=== PATIENT | male | born 1950 | race Caucasian/White ===

== ENCOUNTER → 2017-01-13 | Outpatient (CLI) | payer MEDICARE, OTHER ==
--- NOTE | 2017-01-17 09:08 | SLEEPCENT ---
DATE OF PROCEDURE: 01/13/2017 ORDERING PROVIDER: Prerna Armas NP INTERPRETATION: Nocturnal polysomnography was performed for retitration of pressure therapy in this patient with obstructive sleep apnea syndrome. For testing, a [employer] Simplus full face mask of medium size was used, 10 cm of water pressure was initially applied to the circuit and the lights were extinguished. 7 hours and 54 minutes of data were reviewed. There were 383 minutes of sleep identified. Sleep latency was short at 2.5 minutes. Rapid eye movement (REM) latency was prolonged at 183 minutes. Sleep architecture improved significantly late in the study. There were two REM periods noted. Overall sleep efficiency was 81.8%. The patient's electrocardiogram (EKG) showed a sinus rhythm with intraventricular conduction delay and frequent ventricular ectopy. Average heart rate was 60 beats per minute. Electroencephalogram (EEG) showed reasonably normal waveforms for awake and sleep. Respiratory events were fully palliated with a continuous positive airway pressure (CPAP) pressure of +12. Limb activity persisted. There were several trains of 30 events identified. Limb movement arousal index was borderline at 5.8. IMPRESSION: 1. Obstructive sleep apnea syndrome (G47.33). 2. Mild periodic limb movement disorder (G47.61). Limb movement arousal index of 5.8. RECOMMENDATIONS: CPAP at a pressure of 12 cm is sufficient to address the patient's respiratory events. Should sleep symptoms persist, interventions to reduce the frequency of arousal from limb activity may also be helpful.
== END ==
LOC: M SLEEP 19:06
PROVIDERS: ATTEND Nurse Practitioner Adult Health
DX: G47.33 Obstructive sleep apnea (adult) (pediatric) (principal)

== ENCOUNTER 2020-10-12 16:26 | Inpatient (IN) | payer MEDICARE, OTHER ==
[~2020-10-12] VITALS: Ht 180.3 cm; Wt 128.1 kg
[2020-10-12] MEDS ORDERED: METO200T28 PO ×2 (16:35→16:55)
[2020-10-12] MEDS ORDERED: PRAD150C6 PO (16:35)
[2020-10-12] MEDS ORDERED: FURO20TA2 PO ×2 (16:35→18:48)
[2020-10-12] MEDS ORDERED: PRAV20TA2 PO (16:55)
[2020-10-12] MEDS ORDERED: DICL1GEL3 TOP (16:55)
[2020-10-12] MEDS ORDERED: D 1010004 PO (16:55)
[2020-10-12] MEDS ORDERED: SILD100T PO (16:55)
--- NOTE | 2020-10-12 17:13 | REP ---
INDICATION: DYSPNEA/COUGH. COMPARISON: Comparison chest x-ray October 11, 2018. TECHNIQUE: Portable upright AP chest radiograph. FINDINGS: A bipolar pacemaker is seen in the right heart view of the left side. Moderate cardiomegaly is observed unchanged. Pulmonary vasculature is somewhat congested. The pleural angles are sharp. There is an area of increased density in the right base which may be an early infiltrate. Lung donnelly are otherwise free of infiltrate. Monitoring electrodes and oxygen delivery tubing are seen.. IMPRESSION: Possible infiltrate right base. Cardiomegaly and vascular congestion. Pacemaker.a. <Electronically signed by Bret Forrest > 10/12/20 [id number]
[2020-10-12 17:18] LABS: BASO # 0.1 10^3/uL (0.0-0.2); BASO % 0.6 % (0.0-1.0); EOS # 0.2 10^3/uL (0.0-0.5); EOS % 1.6 % (0.0-3.0); HEMATOCRIT 35.6 % (42.0-52.0); HEMOGLOBIN 10.1 g/dl (13.5-17.5); LYMPH # 1.7 10^3/uL (1.5-5.0); LYMPH % 17.6 % (24.0-44.0); MEAN CORPUSCULAR HEMOGLOBIN 22.1 pg (27.0-33.0); MEAN CORPUSCULAR HGB CONC 28.4 g/dl (32.0-36.5); MEAN CORPUSCULAR VOLUME 78.1 fl (80.0-96.0); MONO % 10.1 % (2.0-8.0); NEUTROPHILS # 6.9 10^3/uL (1.5-8.5); NEUTROPHILS % 69.8 % (36.0-66.0); PLATELET COUNT, AUTOMATED 310 10^3/uL (150-450); RED BLOOD COUNT 4.56 10^6/uL (4.30-6.10); WHITE BLOOD COUNT 9.9 10^3/uL (4.0-10.0)
[2020-10-12 17:49] LABS: ALBUMIN 3.3 GM/DL (3.2-5.2); ALT/SGPT 22 U/L (12-78); BILIRUBIN,DIRECT 0.2 MG/DL (0.0-0.2); BILIRUBIN,TOTAL 0.5 MG/DL (0.2-1.0); BLOOD UREA NITROGEN 23 MG/DL (7-18); CALCIUM LEVEL 7.9 MG/DL (8.8-10.2); CARBON DIOXIDE LEVEL 33 MEQ/L (21-32); CHLORIDE LEVEL 107 MEQ/L (98-107); CPK CREATINE PHOSPHOKINASE 53 U/L (39-308); CREATININE FOR GFR 0.94 MG/DL (0.70-1.30); GLOMERULAR FILTRATION RATE > 60.0 (>49); GLUCOSE, FASTING 100 MG/DL (70-100); MB/CK RELATIVE INDEX 1.89 (< OR =4); NT-PRO BNP 3037 PG/ML (<125); POTASSIUM SERUM 4.4 MEQ/L (3.5-5.1); SODIUM LEVEL 142 MEQ/L (136-145); TROPONIN I < 0.02 NG/ML (< 0.10)
[2020-10-12] MEDS ORDERED: AZITHROMYCIN INJ 500 MG, VIAL MATE ADAPTER 1 EACH in NS 250 ML IV ONE (18:05)
[2020-10-12] MEDS ORDERED: FUROSEMIDE 40MG/4ML VIAL (J1940) IV ONE (18:05)
[2020-10-12] MEDS ORDERED: cefTRIAXone SOD 1 GM in D5W MINI-BAG PLUS 50 ML IV ONE (18:05)
[2020-10-12] MEDS ORDERED: med rec comment (18:50)
[2020-10-12] MEDS ORDERED: ISOVUE-370 76% 100ML VIAL As Ordered ONE (20:01)
--- NOTE | 2020-10-12 20:40 | REPVR ---
PROCEDURE INFORMATION: Exam: US Duplex Lower Extremity Veins, Bilateral Exam date and time: 10/12/2020 7:51 PM Age: 70 years old Clinical indication: Edema, localized; Lower extremity, bilateral; Additional info: Edema R/O dvt TECHNIQUE: Imaging protocol: Real-time duplex ultrasound of the extremities with 2-D molina scale, color Doppler flow and spectral waveform analysis with image documentation. Complete exam focused on the bilateral lower extremity veins. COMPARISON: No relevant prior studies available. FINDINGS: Right deep veins: Unremarkable. The common femoral, femoral, proximal profunda femoral and popliteal veins are patent without thrombus. Normal Doppler waveforms. Normal compressibility and/or augmentation response. Right superficial veins: Saphenofemoral junction is patent without thrombus. Left deep veins: Unremarkable. The common femoral, femoral, proximal profunda femoral and popliteal veins are patent without thrombus. Normal Doppler waveforms. Normal compressibility and/or augmentation response. Left superficial veins: Saphenofemoral junction is patent without thrombus. Soft tissues: Unremarkable. IMPRESSION: No evidence of deep vein thrombosis. Electronically signed by: Jorge A Murillo On 10/12/2020 20:40:07 PM
--- NOTE | 2020-10-12 20:42 | ECGEPIP ---
[facility] - ED Test Date: 2020-10-12 Pat Name: NOELLE MOULTON Department: Room: - Gender: Male Director Retirement: MARCEL : 1950 Requested By: Tomas Yeager Order Number: [id number] Reading MD: Saima Baldwin Measurements Intervals [place] Rate: 65 P: AR: QRS: 258 QRSD: 150 T: 62 QT: 460 QTc: 478 Interpretive Statements Ventricular-paced rhythm Biventricular pacemaker detected No prior Electronically Signed on 10-12-2020 20:42:14 EDT by Saima Baldwin
--- NOTE | 2020-10-12 20:49 | REPVR ---
PROCEDURE INFORMATION: Exam: CTA Chest With Contrast Exam date and time: 10/12/2020 8:23 PM Age: 70 years old Clinical indication: Abnormal findings; Abnormal diagnostic tests; Elevated d-dimer; Additional info: SOB elevated d-dimer TECHNIQUE: Imaging protocol: Computed tomographic angiography of the chest with contrast. 3D rendering (Not supervised by radiologist): MIP and/or 3D reconstructed images were created by the technologist. Radiation optimization: All CT scans at this facility use at least one of these dose optimization techniques: automated exposure control; mA and/or kV adjustment per patient size (includes targeted exams where dose is matched to clinical indication); or iterative reconstruction. Contrast material: ISOVUE 370; Contrast volume: 75 ml; Contrast route: INTRAVENOUS (IV); COMPARISON: ME PORTABLE CHEST X-RAY 10/12/2020 4:53 PM FINDINGS: Tubes, catheters and devices: A transvenous pacemaker is present. Pulmonary arteries: There is opacification of the pulmonary arteries with no evidence of pulmonary embolus. Aorta: There is opacification of the aorta which appears intact. Lungs: Mild congestive changes. Pleural spaces: There is a moderate right pleural effusion. Heart: There is moderate cardiomegaly with no evidence of pericardial effusion. Lymph nodes: Small lymph nodes are noted in the mediastinum. Stomach and bowel: There are postoperative changes of the stomach. Intraperitoneal space: There is a small amount of ascites along the lateral aspect of the right lobe of the liver. Bones/joints: Anterior osteophyte formation thoracic spine. Soft tissues: Unremarkable. IMPRESSION: 1. Moderate right pleural effusion. 2. No evidence of pulmonary embolus. 3. Moderate cardiomegaly with mild congestive changes. Electronically signed by: Jorge A Murillo On 10/12/2020 20:49:19 PM
--- NOTE | 2020-10-12 22:04 | HPEPDOC ---
[facility] Medical History & Physical Date of Admission October 13, 2020 Date of Service: October 13, 2020 Primary Care Physician: Vladimir Negrete Attending Physician: BHARATHI FERRER MD History and Physical TIME OF SERVICE: 1015 pm CHIEF COMPLAINT: dyspnea HISTORY OF PRESENT ILLNESS: This 70 yr old M has been short of breath, having a runny nose , congestion, & BLE edema for about 1.5 weeks; he denied having CP and came to the hospital bc his insisted that he comes. She noticed that he has been lethargic and slurring his speech since he stopped using his CPAP machine which is packed in a box bc they are moving. They admit to eating out more at restaurants recently. 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 HOME MEDICATIONS: Please see below. PHYSICAL EXAMINATION: Vital Signs Date Time Temp Pulse Resp B/P (MAP) Pulse Ox O2 Delivery O2 Flow Rate FiO2 10/12/20 16:27 98.7 69 20 178/87 (117) 93 Room Air 10/12/20 16:44 4.0 10/12/20 22:38 55 GENERAL APPEARANCE: well nourished and developed / NAD/ keeps falling asleep during assessment HEENT: neck short/ EOMI /MMM &P CARDIOVASCULAR: RRR/NMRG LUNGS: breath sounds deminshed ABDOMEN: contour obese /soft & NT w palpation MUSCULOSKELETAL: NCAT / FIDEL x 4 INTEGUMENT: not flushed or diaphoretic or pale NEUROLOGICAL: speech slow but not dysarthric PSYCHIATRIC: intermittently arousable for a few min at at time and is able to answer questions appropriately when he is alert LABORATORY DATA: Immature Granulocyte % (Auto) 0.3, Neutrophils (%) (Auto) 69.8H, Lymphocytes (%) (Auto) 17.6L, Monocytes (%) (Auto) 10.1H, Eosinophils (%) (Auto) 1.6, Basophils (%) (Auto) 0.6, Neutrophils # (Auto) 6.9, Lymphocytes # (Auto) 1.7, Monocytes # (Auto) 1.0H, Eosinophils # (Auto) 0.2, Basophils # (Auto) 0.1, Nucleated Red Blood Cells % (auto) 0.0, Anion Gap 2L, Glomerular Filtration Rate > 60.0, Calcium Level 7.9L, Total Bilirubin 0.5, Direct Bilirubin 0.2, Aspartate Amino Transf (AST/SGOT) 23, Alanine Aminotransferase (ALT/SGPT) 22, Alkaline Phosphatase 73, Total Creatine Kinase 53, Creatine Kinase MB 1.0, Creatine Kinase MB Relative Index 1.89, Troponin I < 0.02, IZ-Cft-S-Type Natriuretic Peptide 3037H, Total Protein 7.0, Albumin 3.3, Albumin/Globulin Ratio 0.9 10/12/20 18:32: D-Dimer, Quantitative 1113.42H IMAGING: XRC IMPRESSION: Possible infiltrate right base. Cardiomegaly and vascular congestion. Pacemaker. CTA chest IMPRESSION: 1. Moderate right pleural effusion.2. No evidence of pulmonary embolus. 3. Moderate cardiomegaly with mild congestive changes. US IMPRESSION: No evidence of deep vein thrombosis. EKG: V paced rhythm MICROBIOLOGY: respiratory panel neg ASSESSMENT: is a 70 yr old w Afib, MVP repair, ALMA ROSA, unspecified CHF?, Pacer w defib, hx of SCA, gastric bypass & obesity who is admitted for acute on chronic hypercapneic respiratory failure and Acute CHF 2/2 not using his CPAP for a few days and eating food that his had not prepared. PLAN: 1 Acute on Chronic Hypercapneic Respiratory Failure / ALMA ROSA Plan: admit to ICU / BIPAP / f/u ABG / diuresis 2 Acute Unspecified CHF Plan: elevate head of bed to 50 degrees/ strict Is/OS, daily weights, fluid restriction to 2L or 67oz, salt restriction to 2G / f/u serial Troponins & Echo / c/w Metoprolol 3 Microcytic Anemia Plan: f/u Iron studies and stool occult 4 Atrial Fib Plan: Metoprolol & Dabigatran 5 Class 2 Obesity / s/p Gastric Bypass Complicates care DVT px n/a on DOAC Dispo: home after at least 2 midnights stay Home Medications Scheduled Cholecalciferol (Vitamin D3) (Vitamin D3) 25 Mcg Capsule, 25 MCG PO DAILY Dabigatran Etexilate Mesylate (Pradaxa) 150 Mg Capsule, 150 MG PO BID Furosemide (Furosemide) 20 Mg Tablet, 60 MG PO QAM takes for 3 days,then takes 20mg day for 1 day Furosemide (Furosemide) 20 Mg Tablet, 20 MG PO DAILY Metoprolol Succinate (Metoprolol Succinate) 200 Mg Tab.er.24h, 200 MG PO DAILY Miscellaneous Medications [med rec comment] states pt takes lasix 60mg qam and 20mg at 1600 for 3 days then drops down to 20mgs daily for 1 day. Allergies Coded Allergies: No Known Allergies (Unverified , 06/13/14) A-FIB/CHADSVASC A-FIB History Current/History of A-Fib/PAF?: No Current PO Anticoag Therapy: No BHARATHI FERRER MD October 12, 2020 22:04
[2020-10-12] MEDS ORDERED: MOM 30ML SUSPENSION UDC PO PRN (22:25)
[2020-10-12] MEDS ORDERED: ACETAMINOPHEN TAB 650MG DOSE (2X325MG) PO PRN (22:25)
[2020-10-12] MEDS ORDERED: MAALOX 30 ML SUSP *UDC PO PRN (22:25)
[2020-10-12 22:42] LABS: MAGNESIUM LEVEL 1.9 MG/DL (1.8-2.4)
[2020-10-12 22:47] LABS: ABG O2 SATURATION 98.3 % (95.0-99.0)
[2020-10-12 22:49] LABS: ABG BASE EXCESS 4.1 (-2.0-2.0); ABG PARTIAL PRESSURE O2 140.2 mmHg (75.0-100.0); ABG STANDARD HCO3 28.2 MEQ/L (22.0-26.0); ABG TOTAL CO2 36.6 MEQ/L (23.0-31.0)
[2020-10-12 22:50] LABS: ABG PARTIAL PRESSURE CO2 85.6 mmHg (35.0-45.0); ABG pH (ARTERIAL) 7.217 UNITS (7.350-7.450)
[2020-10-13] VITALS (39 sets, daily range): BP systolic 78–167; BP diastolic 50–78
[2020-10-13] MEDS ORDERED: DABIGATRAN ETEXILATE 75 MG CAP (PRADAXA) PO SCH (00:30)
[2020-10-13] MEDS: FUROSEMIDE 40MG/4ML VIAL (J1940) IV SCH ×2 (00:33→03:53)
[2020-10-13 00:50] LABS: FERRITIN 11 NG/ML (26-388); IRON (FE) 20 UG/DL (65-175); PERCENT SATURATION 3.8 % (19.7-50.0); TOTAL IRON BINDING CAPACITY 522 UG/DL (250-450)
[2020-10-13 02:14] LABS: ABG BASE EXCESS 6.4 (-2.0-2.0); ABG HCO3 35.2 MEQ/L (22.0-26.0); ABG O2 SATURATION 97.9 % (95.0-99.0); ABG PARTIAL PRESSURE O2 127.7 mmHg (75.0-100.0); ABG STANDARD HCO3 30.3 MEQ/L (22.0-26.0); ABG TOTAL CO2 37.6 MEQ/L (23.0-31.0); ABG pH (ARTERIAL) 7.279 UNITS (7.350-7.450)
[2020-10-13 02:15] LABS: ABG PARTIAL PRESSURE CO2 76.9 mmHg (35.0-45.0)
[2020-10-13] MEDS ORDERED: PROPOFOL 1,000 MG/100 ML VIAL As Ordered ONE (02:48)
[2020-10-13] MEDS ORDERED: SUCCINYLCHOLINE INJ 200 MG/10 ML VIAL (J0330) As Ordered ONE (02:58)
[2020-10-13] MEDS ORDERED: SUCCINYLCHOLINE INJ 200 MG/10 ML VIAL (J0330) IV ONE (03:00)
[2020-10-13] MEDS ORDERED: MIDAZOLAM INJ 2MG/2ML VIAL (J2250 PER 1MG) As Ordered ONE (03:12)
--- NOTE | 2020-10-13 03:16 | IPNPDOC ---
Text Note Date of Service The patient was seen on 10/13/20. NOTE TIME OF SERVICE 242AM #Acute vent dependent hypercapneic respiratory failure I received a phone call from RAH Dick at about 238AM w concerns that the patient was obtunded. At the time of my evaluation the patient grimaced to deep sternal rub and couldn't keep his eyes open for more than 2 sec therefore we made the decision to intubate him with the help of the RN Anesthesis edge bonder. His was informed & we consulted for co-management. VS,Fishbone, I+O VS, Fishbone, I+O Laboratory Tests 10/12/20 17:03 Vital Signs Date Time Temp Pulse Resp B/P (MAP) Pulse Ox O2 Delivery O2 Flow Rate FiO2 10/13/20 00:39 45 10/13/20 00:38 64 19 161/77 (105) 98 NIPPV (BIPAP/CPAP) 10/13/20 00:15 97.3 10/12/20 20:00 4.0 I&O- Last 24 Hours up to 6 AM 10/13/20 06:00 Intake Total 305 ml Output Total 3600 ml Balance -3295 ml BHARATHI FERRER MD October 13, 2020 03:16
[2020-10-13] MEDS ORDERED: REFRIGERATOR IV KEYS XX PRN (03:20)
[2020-10-13] MEDS: propofoL 1,000 MG in IV 1 EA IV SCH ×8 (03:30→22:42)
[2020-10-13] MEDS ORDERED: GLUCOSE 4GM CHEW TABLET PO PRN (03:50)
[2020-10-13] MEDS ORDERED: GLUCAGON INJ 1MG VIAL SC PRN (03:50)
[2020-10-13] MEDS ORDERED: DEXTROSE 50% 50 ML SYRINGE IV PRN (03:50)
[2020-10-13] MEDS: MIDAZOLAM INJ 2MG/2ML VIAL (J2250 PER 1MG) IV PRN ×2 (03:58→04:50)
[2020-10-13] MEDS: MIDAZOLAM HCL 100 MG in D5W 80 ML IV SCH ×2 (03:59→22:23)
[2020-10-13 04:43] LABS: HEMATOCRIT 33.2 % (42.0-52.0); HEMOGLOBIN 9.4 g/dl (13.5-17.5); MEAN CORPUSCULAR HGB CONC 28.3 g/dl (32.0-36.5); MEAN CORPUSCULAR VOLUME 77.8 fl (80.0-96.0); PLATELET COUNT, AUTOMATED 296 10^3/uL (150-450); RED BLOOD COUNT 4.27 10^6/uL (4.30-6.10); WHITE BLOOD COUNT 8.7 10^3/uL (4.0-10.0)
[2020-10-13 05:02] LABS: BLOOD UREA NITROGEN 20 MG/DL (7-18); CALCIUM LEVEL 8.2 MG/DL (8.8-10.2); CARBON DIOXIDE LEVEL 38 MEQ/L (21-32); CHLORIDE LEVEL 103 MEQ/L (98-107); CREATININE FOR GFR 1.01 MG/DL (0.70-1.30); GLOMERULAR FILTRATION RATE > 60.0 (>49); GLUCOSE, FASTING 100 MG/DL (70-100); POTASSIUM SERUM 4.2 MEQ/L (3.5-5.1); SODIUM LEVEL 142 MEQ/L (136-145)
--- NOTE | 2020-10-13 05:03 | REPVR ---
PROCEDURE INFORMATION: Exam: XR Chest Exam date and time: 10/13/2020 3:17 AM Age: 70 years old Clinical indication: Other: Intubation TECHNIQUE: Imaging protocol: XR of the chest. Views: 1 view. COMPARISON: [facility] PORTABLE CHEST X-RAY 10/12/2020 4:53 PM FINDINGS: Limitations: The left lateral chest was not fully included. Tubes, catheters and devices: There is an endotracheal tube in appropriate position. There is a left-sided AICD/pacemaker. Lungs: There is improvement in patchy opacities in the bilateral lung bases. Pleural spaces: There is no definite right-sided pleural effusion. Assessment for a left pleural effusion is limited. No pneumothorax identified. Heart/Mediastinum: The heart is again enlarged. Bones/joints: Unremarkable. IMPRESSION: 1. Interval intubation. Appropriate position of the endotracheal tube. 2. Improvement in bibasilar opacities. Electronically signed by: Aniya Russ On 10/13/2020 05:03:12 AM
[2020-10-13] MEDS: HumaLOG INSULIN (NovoLOG) PER UNIT SC SCH ×3 (06:09→17:12)
[2020-10-13 06:23] LABS: ABG BASE EXCESS 11.7 (-2.0-2.0); ABG HCO3 34.5 MEQ/L (22.0-26.0); ABG PARTIAL PRESSURE CO2 37.7 mmHg (35.0-45.0); ABG PARTIAL PRESSURE O2 95.7 mmHg (75.0-100.0); ABG STANDARD HCO3 35.5 MEQ/L (22.0-26.0); ABG TOTAL CO2 35.6 MEQ/L (23.0-31.0); ABG pH (ARTERIAL) 7.579 UNITS (7.350-7.450)
[2020-10-13] MEDS: IPRATROPIUM 0.5MG/ALBUTEROL 2.5MG INH SOL UD 3ML (DUONEB) NEB SCH ×4 (07:29→19:37)
--- NOTE | 2020-10-13 08:58 | CCN ---
CRITICAL CARE NOTE DATE: 10/13/2020 SUBJECTIVE: I was called in to evaluate this 70-year-old male with acute respiratory failure admitted earlier with dyspnea progressing over the past two weeks. On review of his electronic health records, he has obstructive sleep apnea syndrome, obesity status post gastric bypass in 2005, he has had an abdominal aortic aneurysm resected, mitral valvular disease, bilateral knee replacements, hypertension, atrial fibrillation with ejection fraction of 40% to 50% in 2017, pulmonary hypertension, pacer defibrillator placement, and was recently hospitalized for sepsis in [place]. OBJECTIVE: GENERAL: On my arrival, the patient has just been intubated and is now paralyzed from succinylcholine. HEENT: His pupils are small and reactive. The oral mucosa is pink. There is a #8 endotracheal tube at 23 cm. NECK: Agy. HEART: Sounds are regular. His rhythm is paced on the monitor. The pacer defibrillator is in place in the left upper chest. LUNGS: Breath sounds are diminished globally. ABDOMEN: Soft and obese. EXTREMITIES: Show pulses x4. There is no gross edema of the legs. DIAGNOSTIC STUDIES: His white cell count is 10.9, hemoglobin 10.1, hematocrit 35.6, platelet count 310,000. Differential white cell count shows 69% neutrophils and 10 monocytes. The electrolytes are sodium 142, potassium 4.4, chloride 107, CO2 of 33, BUN 23, creatinine 0.94, glucose 100, calcium 7.9, magnesium 1.9. Iron is 20, TIBC 522, transferrin is 3.8, and ferritin of 11. Bilirubin is 0.5, AST 23, ALT 22, alkaline phosphatase 73, CPK 53. The proBNP is 3037. Albumin is 3.3. D-dimer 1113.42. Arterial blood gases earlier showed a pH of 7.21, pCO2 of 85, and pO2 of 140. Chest x-ray shows a right pleural effusion. CT shows interstitial edema, right effusion, and cardiomegaly. ASSESSMENT AND PLAN: 1. The primary problem requiring critical attention is acute respiratory failure with hypoxemia and hypercarbia. We will initiate mechanical ventilation with pressure control, sedate with propofol and Versed, and recheck arterial blood gases. 2. Pulmonary edema. Lasix has been administered. A Alvarez catheter will be placed for critical care monitoring of urine output. 3. Cardiomyopathy. A repeat echo will be performed in the morning. 4. Altered level of consciousness. This could be related to his elevated CO2. However, the etiology at this point is not entirely certain. 5. Obstructive sleep apnea syndrome and obesity hypoventilation syndrome. The patient may need pressure reevaluation once the critical illness has passed. 6. Ulcer prophylaxis will be addressed with Protonix. 7. Deep vein thrombosis (DVT) prophylaxis will be addressed with sequential hose and TEDs. 8. Glycemic control will be addressed with fingerstick blood sugars and coverage. I have discussed the patient's case in detail with the attending hospitalist service. The ICU nurses care team has been updated on the patient's status and care plans for the day. He is critically ill. Prognosis is guarded. CRITICAL CARE TIME: 137 minutes was spent in the provision of bedside critical care and coordination, exclusive of any procedure time.
[2020-10-13] MEDS ORDERED: METOPROLOL SUCC (TopROL XL) 100MG *XL* TAB PO SCH (09:00)
[2020-10-13] MEDS ORDERED: IRON SUCROSE 100MG 5ML VIAL (J1756 PER 1MG) IV SCH (09:00)
[2020-10-13] MEDS: APIXABAN 5 MG TAB (ELIQUIS) PO SCH ×2 (09:00→21:19)
--- NOTE | 2020-10-13 09:00 | REP ---
INDICATION: altered mental status. COMPARISON: None. TECHNIQUE: Helical scanning is acquired. 5 mm axial images were reformatted. Coronal MPR images were generated. FINDINGS: Preliminary digital statistician radiograph demonstrates an senthil tracheal tube. Bony calvarium is intact on bone window settings. There is moderate vascular calcification in the distal vertebral and distal internal carotid arteries bilaterally. The visualized paranasal sinuses are clear. No intraorbital abnormality is appreciated. On soft tissue window settings, the lateral, 3rd, and 4th ventricles are normal in position and appearance. There is mild generalized volume loss. Dilated perivascular spaces seen inferior to the basal ganglia on the right. Punctate physiologic calcification of the basal ganglia is present. There is no evidence of infarct, hemorrhage, extra-axial fluid collection, mass, or midline shift. IMPRESSION: Generalized volume loss, vascular calcification, mild small vessel changes. No acute intracranial abnormality.. <Electronically signed by Bret Forrest > 10/13/20 [id number]
[2020-10-13 09:51] LABS: ABG BASE EXCESS 14.5 (-2.0-2.0); ABG HCO3 38.4 MEQ/L (22.0-26.0); ABG O2 SATURATION 95.6 % (95.0-99.0); ABG PARTIAL PRESSURE CO2 44.9 mmHg (35.0-45.0); ABG PARTIAL PRESSURE O2 69.7 mmHg (75.0-100.0); ABG STANDARD HCO3 38.3 MEQ/L (22.0-26.0); ABG TOTAL CO2 39.8 MEQ/L (23.0-31.0)
[2020-10-13] MEDS: CHLORHEXIDINE GLUCONATE 0.12 % 15ML UDC (PERIDEX ORAL RINSE) MT SCH ×2 (10:30→21:19)
[2020-10-13] MEDS: PANTOPRAZOLE 40MG VIAL (C9113 PER 1) IV SCH (10:33)
[2020-10-13] MEDS: IRON SUCROSE 100 MG in NS 100 ML IV SCH (12:50)
--- NOTE | 2020-10-13 13:04 | IPNPDOC ---
Text Note Date of Service The patient was seen on 10/13/20. NOTE H&P as well as a admission labs and imaging reviewed by me. Overnight events noted. Patient is admitted after midnight does not require. Case discussed with the critical care physician. Who both agree to discontinue IV Lasix as he was diuresed in excess of 4 L and his vent settings are improving. Patient's iron indices indicate that he is iron deficient, stool for occult blood is still pending. Patient will be placed on IV Venofer 100 mg IV daily for next 3 days. I reviewed the patient's CT scan of his chest, no evidence of infection is noted. He does have a low-grade temperature. He did receive IV Rocephin upon admission, at this time we'll hold off on any further antibiotics. Blood cultures are pending. Echocardiogram is pending also. Arterial blood gas shows improvement. CT scan of the head without contrast done this morning showed no acute event. I have transition the patient to eliquis from [facility] 2/ inability to crush the medication. That management per critical care service. VS,Fishbone, I+O VS, Fishbone, I+O Laboratory Tests 10/12/20 17:03 10/13/20 04:16 Vital Signs Date Time Temp Pulse Resp B/P (MAP) Pulse Ox O2 Delivery O2 Flow Rate FiO2 10/13/20 12:00 100.2 64 16 98/53 (68) 93 Ventilator 55 10/12/20 20:00 4.0 I&O- Last 24 Hours up to 6 AM 10/13/20 06:00 Intake Total 405 ml Output Total 4375 ml Balance -3970 ml LUIS DANIEL ALVARENGA MD October 13, 2020 13:04
[2020-10-14] VITALS (25 sets, daily range): BP systolic 98–177; BP diastolic 55–84; O2SAT 88–92
[2020-10-14] MEDS: propofoL 1,000 MG in IV 1 EA IV SCH ×2 (01:21→04:33)
[2020-10-14 04:39] LABS: BASO % 0.4 % (0.0-1.0); EOS # 0.1 10^3/uL (0.0-0.5); EOS % 1.4 % (0.0-3.0); HEMOGLOBIN 9.7 g/dl (13.5-17.5); LYMPH # 1.6 10^3/uL (1.5-5.0); LYMPH % 18.7 % (24.0-44.0); MEAN CORPUSCULAR HEMOGLOBIN 21.7 pg (27.0-33.0); MEAN CORPUSCULAR HGB CONC 29.4 g/dl (32.0-36.5); MONO # 0.9 10^3/uL (0.0-0.8); MONO % 11.1 % (2.0-8.0); NEUTROPHILS # 5.7 10^3/uL (1.5-8.5); NEUTROPHILS % 67.8 % (36.0-66.0); PLATELET COUNT, AUTOMATED 287 10^3/uL (150-450); RED BLOOD COUNT 4.46 10^6/uL (4.30-6.10); WHITE BLOOD COUNT 8.5 10^3/uL (4.0-10.0)
[2020-10-14 05:12] LABS: ALT/SGPT 17 U/L (12-78); BILIRUBIN,TOTAL 0.5 MG/DL (0.2-1.0); BLOOD UREA NITROGEN 23 MG/DL (7-18); CALCIUM LEVEL 8.2 MG/DL (8.8-10.2); CARBON DIOXIDE LEVEL 35 MEQ/L (21-32); CHLORIDE LEVEL 102 MEQ/L (98-107); CHOLESTEROL LEVEL 130 MG/DL (< 200); CPK CREATINE PHOSPHOKINASE 78 U/L (39-308); CREATININE FOR GFR 0.96 MG/DL (0.70-1.30); GLOMERULAR FILTRATION RATE > 60.0 (>49); GLUCOSE, FASTING 96 MG/DL (70-100); LDH LACTATE DEHYDROGENASE 162 U/L (87-241); NT-PRO BNP 783 PG/ML (<125); PHOSPHORUS LEVEL 3.5 MG/DL (2.5-4.9); POTASSIUM SERUM 3.2 MEQ/L (3.5-5.1); SODIUM LEVEL 142 MEQ/L (136-145); TRIGLYCERIDES LEVEL 113 MG/DL (<150)
[2020-10-14] MEDS: HumaLOG INSULIN (NovoLOG) PER UNIT SC SCH ×4 (05:55→17:33)
[2020-10-14 06:04] LABS: ABG BASE EXCESS 13.3 (-2.0-2.0); ABG HCO3 36.8 MEQ/L (22.0-26.0); ABG O2 SATURATION 95.1 % (95.0-99.0); ABG PARTIAL PRESSURE CO2 42.3 mmHg (35.0-45.0); ABG PARTIAL PRESSURE O2 72.5 mmHg (75.0-100.0); ABG TOTAL CO2 38.1 MEQ/L (23.0-31.0); ABG pH (ARTERIAL) 7.557 UNITS (7.350-7.450)
[2020-10-14] MEDS ORDERED: METOPROLOL 5 MG/5 ML VIAL IV PRN (07:20)
--- NOTE | 2020-10-14 08:14 | REP ---
INDICATION: ett, pulm edema. COMPARISON: Comparison study October 13, 2020. TECHNIQUE: Portable upright AP chest radiograph. FINDINGS: There is a bipolar pacemaker in place via the left side. Endotracheal tube is seen in good position at the level of the transverse aorta. NG tube enters the left upper quadrant of the abdomen. Moderate cardiac enlargement is again seen unchanged. There is pleural opacity at the bases bilaterally, more prominent than on yesterday's radiograph. There is some new platelike atelectasis along the minor fissure on the right versus fissural fluid.. IMPRESSION: Cardiomegaly with bilateral effusions and vascular congestion. CHF pattern. Platelike atelectasis versus fissural fluid on the right. Pacemaker.. <Electronically signed by Bret Forrest > 10/14/20 [id number]
[2020-10-14] MEDS ORDERED: KCL IV ONE (08:15)
[2020-10-14] MEDS ORDERED: SWI IV ONE (08:15)
[2020-10-14] MEDS: IPRATROPIUM 0.5MG/ALBUTEROL 2.5MG INH SOL UD 3ML (DUONEB) NEB SCH ×4 (08:23→20:50)
[2020-10-14 08:37] LABS: MAGNESIUM LEVEL 2.2 MG/DL (1.8-2.4)
[2020-10-14] MEDS ORDERED: propofoL 1,000 MG in IV 1 EA IV SCH (08:41)
[2020-10-14] MEDS ORDERED: FUROSEMIDE 40MG/4ML VIAL (J1940) IV ONE (08:45)
[2020-10-14] MEDS: KCL 10MEQ/100ML SWI (KRUN) IV SCH ×8 (08:50→12:02)
[2020-10-14] MEDS: PANTOPRAZOLE 40MG VIAL (C9113 PER 1) IV SCH (08:50)
[2020-10-14] MEDS: APIXABAN 5 MG TAB (ELIQUIS) PO SCH ×2 (08:51→20:02)
[2020-10-14] MEDS: CHLORHEXIDINE GLUCONATE 0.12 % 15ML UDC (PERIDEX ORAL RINSE) MT SCH (08:51)
[2020-10-14] MEDS: IRON SUCROSE 100 MG in NS 100 ML IV SCH (12:19)
[2020-10-14 13:15] LABS: ABG BASE EXCESS 12.7 (-2.0-2.0); ABG HCO3 36.6 MEQ/L (22.0-26.0); ABG O2 SATURATION 92.5 % (95.0-99.0); ABG PARTIAL PRESSURE CO2 44.2 mmHg (35.0-45.0); ABG PARTIAL PRESSURE O2 60.3 mmHg (75.0-100.0); ABG STANDARD HCO3 36.3 MEQ/L (22.0-26.0); ABG pH (ARTERIAL) 7.536 UNITS (7.350-7.450)
[2020-10-14 13:47] LABS: ALBUMIN 3.4 GM/DL (3.2-5.2); BLOOD UREA NITROGEN 20 MG/DL (7-18); CALCIUM LEVEL 8.4 MG/DL (8.8-10.2); CARBON DIOXIDE LEVEL 36 MEQ/L (21-32); CHLORIDE LEVEL 101 MEQ/L (98-107); CREATININE FOR GFR 1.05 MG/DL (0.70-1.30); GLOMERULAR FILTRATION RATE > 60.0 (>49); GLUCOSE, FASTING 98 MG/DL (70-100); PHOSPHORUS LEVEL 3.6 MG/DL (2.5-4.9); POTASSIUM SERUM 3.8 MEQ/L (3.5-5.1); SODIUM LEVEL 142 MEQ/L (136-145)
--- NOTE | 2020-10-14 15:22 | IPNPDOC ---
Subjective Date Seen The patient was seen on 10/14/20. Subjective Chief Complaint/HPI Quinn was extubated this morning to BiPAP. His subsequent gas postextubation improving. He remains alert and oriented 3. No issues overnight Objective Physical Examination General Exam: Positive: Alert, No Acute Distress Eye Exam: Positive: PERRLA, Conjunctiva & lids normal, EOMI; Negative: Sclera icteric Chest Exam: Positive: Clear to auscultation, Normal air movement Heart Exam: Positive: Rate Normal, Irregular Rhythm, Normal S1, Normal S2; Negative: Murmurs, Rubs Telemetry: Positive: Atrial fibrillation Abdomen Exam: Positive: Normal bowel sounds, Soft; Negative: Tenderness, Hepatospenomegaly Extremity Exam: Positive: Normal pulses; Negative: Clubbing, Cyanosis, Edema Neuro Exam: Positive: Normal Speech, Strength at 5/5 X4 ext Psych Exam: Positive: Mental status NL Assessment /Plan Assessment # Acute on Chronic Hypercapneic Respiratory Failure # ALMA ROSA on CPAP #Acute toxic metabolic encephalopathy Patient was extubated this morning, he is presently on BiPAP Wean BiPAP as tolerated CT scan of the head without contrast was normal # Acute on chronic systolic CHF # Hypokalemia Continue to hold Lasix patient has diuresed over 4 L in the past 36 hours Replace potassium Resume oral metoprolol 20 mg by mouth daily in a.m. Can resume oral Lasix in a.m, patient takes 60 mg daily for 3 days and then 20 mg #Iron deficiency anemia Stool occult is pending Venofer day #2/3 Patient will need follow-up with GI as an outpatient to discover his source of iron loss # Chronic A. fib Atrial Fib rate controlled Metoprolol succinate 20 mg by mouth daily Can transition from Aislinn Bob twice a day 2. Axid twice a day in a.m. # Class 2 Obesity / s/p Gastric Bypass - Complicates care DVT px Eliquis bid Dispo: likely home in 2-3 days time Plan/VTE VTE Prophylaxis Ordered?: Yes VS, I&O, 24H, Fishbone Vital Signs/I&O Vital Signs Date Time Temp Pulse Resp B/P (MAP) Pulse Ox O2 Delivery O2 Flow Rate FiO2 10/14/20 14:11 100.2 71 20 128/61 (83) 94 NIPPV (BIPAP/CPAP) 15.0 10/14/20 10:15 98 I&O- Last 24 Hours up to 6 AM 10/14/20 06:00 Intake Total 643.8 ml Output Total 1095 ml Balance -451.2 ml Laboratory Data 24H LABS Laboratory Tests 2 10/13/20 17:09: Bedside Glucose (Misc Panel) 107 10/13/20 23:56: Bedside Glucose (Misc Panel) 115 10/14/20 04:08: Immature Granulocyte % (Auto) 0.6, Neutrophils (%) (Auto) 67.8H, Lymphocytes (%) (Auto) 18.7L, Monocytes (%) (Auto) 11.1H, Eosinophils (%) (Auto) 1.4, Basophils (%) (Auto) 0.4, Neutrophils # (Auto) 5.7, Lymphocytes # (Auto) 1.6, Monocytes # (Auto) 0.9H, Eosinophils # (Auto) 0.1, Basophils # (Auto) 0.0, Nucleated Red Blood Cells % (auto) 0.0, Anion Gap 5L, Glomerular Filtration Rate > 60.0, Calcium Level 8.2L, Phosphorus Level 3.5, Magnesium Level 2.2, Total Bilirubin 0.5, Aspartate Amino Transf (AST/SGOT) 21, Alanine Aminotransferase (ALT/SGPT) 17, Alkaline Phosphatase 68, Lactate Dehydrogenase 162, Total Creatine Kinase 78, UY-Bvi-S-Type Natriuretic Peptide 783H, Total Protein 7.0, Albumin 3.0L, Albumin/Globulin Ratio 0.8, Triglycerides Level 113, Cholesterol Level 130 10/14/20 05:40: Blood Gas Bicarbonate Standard 37.0H, Arterial Blood pH 7.557H, Arterial Blood Partial Pressure CO2 42.3, Arterial Blood Partial Pressure O2 72.5L, Arterial Blood Total CO2 38.1H, Arterial Blood HCO3 36.8H, Arterial Blood Base Excess 13.3H, Arterial Blood Oxygen Saturation 95.1 10/14/20 05:49: Bedside Glucose (Misc Panel) 110 10/14/20 12:05: Bedside Glucose (Misc Panel) 117H 10/14/20 12:59: Anion Gap 5L, Glomerular Filtration Rate > 60.0, Calcium Level 8.4L, Phosphorus Level 3.6, Albumin 3.4 10/14/20 13:02: Blood Gas Bicarbonate Standard 36.3H, Arterial Blood pH 7.536H, Arterial Blood Partial Pressure CO2 44.2, Arterial Blood Partial Pressure O2 60.3L, Arterial Blood Total CO2 38.0H, Arterial Blood HCO3 36.6H, Arterial Blood Base Excess 12.7H, Arterial Blood Oxygen Saturation 92.5L CBC/BMP Laboratory Tests 10/14/20 04:08 10/14/20 12:59 Microbiology Microbiology 10/13/20 Urine Culture - Final, Complete 10/12/20 Blood Culture - Preliminary, Resulted No growth after 24 hours . All specim... 10/12/20 Respiratory Virus Panel (PCR) (AUDIE) - Final, Complete 10/12/20 Blood Culture - Preliminary, Resulted No growth after 24 hours . All specim... LUIS DANIEL ALVARENGA MD October 14, 2020 15:22
--- NOTE | 2020-10-14 17:32 | CCN ---
CRITICAL CARE NOTE DATE: 10/14/2020 SUBJECTIVE: The patient is seen in the intensive care unit. This is hospital day #2, endotracheal tube day #2 through the th. Sedation has been reduced and the patient is more responsive this morning. He is now on propofol with intermittent Versed. OBJECTIVE: VITAL SIGNS: At bedside, temperature is 99, T-max for the past 24 hours 100.4 rectal, pulse rate 64, respirations 17, blood pressure 102/56, 60% oxygen is yielding a saturation of 93%. INTAKE AND OUTPUT: For the past 24 hours, 743 in and 3310 out; since midnight 0 in and 260 out. GENERAL APPEARANCE: At bedside, she is ill-appearing, somnolent, does arouse when stimulated. HEENT: His pupils are small and reactive. Oral mucosa is pink. There is a #8 endotracheal tube at 23 cm and NG tube in the left naris. NECK: Supple. No meningismus. HEART: Sounds are irregular without appreciable murmur. There is some slurring of the second heart sound. LUNGS: Breath sounds are globally diminished. Expiratory phase is prolonged, but there are no focal sound anteriorly. Posteriorly there are some rales. ABDOMEN: Soft and obese with intact bowel sounds right lower quadrant. No palpable mass. EXTREMITIES: Cool. Pulses diminished. Nails show no clubbing. DIAGNOSTIC STUDIES: His white cell count is 8.5, hemoglobin is slightly improved at 9.7, hematocrit 33.0, platelet count 287,000. Differential white cell count shows 67% neutrophils. The electrolytes are sodium 142, potassium down to 3.2, chloride 102, CO2 of 35, BUN 23, creatinine down to 0.96, glucose 96. His liver enzymes transaminases are normal, AST 21, ALT 17, alkaline phosphatase is also 68. LDH is 162. Brain natriuretic peptide remains slightly elevated at 783. The albumin is 3.0. Arterial blood gases show a pH of 7.55, pCO2 of 42, pO2 of 72. Chest imaging shows interstitial edema and small bilateral pleural effusions, slightly worse than yesterday on comparison imaging. Pacemaker remains in place and there is a defibrillator aspect to the pacemaker. MEDICATIONS REVIEW: The patient is receiving DuoNebs q.i.d., Protonix 40 mg a day, insulin coverage. He received a dose of IV iron. Lopressor 5 mg q. 6 and propofol drip. On review of microbiology studies blood cultures are negative x2. Urinalysis showed no bacteria and urine culture was negative. His COVID study was negative on admission. ASSESSMENT AND PLAN: 1. The primary problem requiring critical attention is acute respiratory failure. We will change mechanical ventilatory mode and proceed with weaning today. 2. Pulmonary edema. The patient's chest x-ray continues to show interstitial edema and the AA gradient is elevated. We will give an additional dose of Lasix. 3. Hypokalemia. Replacement has been ordered. I will recheck his potassium and renal profile at 1 p.m. Likely he will need additional replacement therapy. 4. Obstructive sleep apnea/obesity hypoventilation syndrome. The patient had been on CPAP at 12 cm. Should extubation be successful today, he will likely require a CPAP at night. 5. Deep vein thrombosis (DVT) prophylaxis. As the head CT was reasonably normal, I will add subcutaneous heparin to his sequential hose. 6. Ulcer prophylaxis being addressed with Protonix. 7. Glycemic is within reasonable limits. I have reviewed the patient's current status and care plan for the day with the ICU nursing team. CRITICAL CARE TIME: 87 minutes was spent in the provision of bedside critical care and coordination, exclusive of any time spent for the performance of procedures.
[2020-10-14] MEDS ORDERED: METOPROLOL SUCC (TopROL XL) 100MG *XL* TAB PO ONE (20:55)
[2020-10-15] VITALS (9 sets, daily range): BP systolic 100–175; BP diastolic 51–77
[2020-10-15 05:07] LABS: BASO % 0.4 % (0.0-1.0); EOS # 0.4 10^3/uL (0.0-0.5); EOS % 4.3 % (0.0-3.0); HEMATOCRIT 37.9 % (42.0-52.0); HEMOGLOBIN 11.2 g/dl (13.5-17.5); LYMPH # 1.5 10^3/uL (1.5-5.0); LYMPH % 14.5 % (24.0-44.0); MEAN CORPUSCULAR HEMOGLOBIN 21.8 pg (27.0-33.0); MEAN CORPUSCULAR HGB CONC 29.6 g/dl (32.0-36.5); MEAN CORPUSCULAR VOLUME 73.9 fl (80.0-96.0); MONO # 1.2 10^3/uL (0.0-0.8); MONO % 11.6 % (2.0-8.0); NEUTROPHILS # 6.9 10^3/uL (1.5-8.5); NEUTROPHILS % 68.5 % (36.0-66.0); PLATELET COUNT, AUTOMATED 361 10^3/uL (150-450); RED BLOOD COUNT 5.13 10^6/uL (4.30-6.10); WHITE BLOOD COUNT 10.1 10^3/uL (4.0-10.0)
[2020-10-15 05:26] LABS: ABG BASE EXCESS 7.8 (-2.0-2.0); ABG HCO3 31.6 MEQ/L (22.0-26.0); ABG O2 SATURATION 95.9 % (95.0-99.0); ABG PARTIAL PRESSURE CO2 41.1 mmHg (35.0-45.0); ABG STANDARD HCO3 31.6 MEQ/L (22.0-26.0); ABG TOTAL CO2 32.9 MEQ/L (23.0-31.0); ABG pH (ARTERIAL) 7.504 UNITS (7.350-7.450)
[2020-10-15 05:48] LABS: ALBUMIN 3.4 GM/DL (3.2-5.2); ALT/SGPT 18 U/L (12-78); BILIRUBIN,TOTAL 1.1 MG/DL (0.2-1.0); BLOOD UREA NITROGEN 18 MG/DL (7-18); CALCIUM LEVEL 8.2 MG/DL (8.8-10.2); CARBON DIOXIDE LEVEL 32 MEQ/L (21-32); CHLORIDE LEVEL 104 MEQ/L (98-107); CHOLESTEROL LEVEL 163 MG/DL (< 200); CPK CREATINE PHOSPHOKINASE 265 U/L (39-308); CREATININE FOR GFR 0.98 MG/DL (0.70-1.30); GLOMERULAR FILTRATION RATE > 60.0 (>49); GLUCOSE, FASTING 94 MG/DL (70-100); LDH LACTATE DEHYDROGENASE 223 U/L (87-241); PHOSPHORUS LEVEL 3.3 MG/DL (2.5-4.9); POTASSIUM SERUM 3.5 MEQ/L (3.5-5.1); SODIUM LEVEL 142 MEQ/L (136-145); TOTAL PROTEIN 7.3 GM/DL (6.4-8.2); TRIGLYCERIDES LEVEL 93 MG/DL (<150)
[2020-10-15] MEDS: HumaLOG INSULIN (NovoLOG) PER UNIT SC SCH ×2 (05:52)
--- NOTE | 2020-10-15 07:52 | REP ---
INDICATION: ett, pulm edema COMPARISON: 10/15/2019 TECHNIQUE: Portable AP view of the chest FINDINGS: Endotracheal tube and nasogastric tube have been removed. The mediastinum and cardiac silhouette are stable and cardiomegaly again suggested along with pacemaker in stable position. No focal consolidation effusion or pneumothorax. Mild pulmonary vascular congestion cannot be excluded but increased markings appear improved compared to prior. Skeletal structures are intact. IMPRESSION: No focal consolidation or effusion. Improved aeration suggested. <Electronically signed by Levar Silverio > 10/15/20 [id number]
[2020-10-15] MEDS: IPRATROPIUM 0.5MG/ALBUTEROL 2.5MG INH SOL UD 3ML (DUONEB) NEB SCH ×4 (08:12→19:37)
[2020-10-15] MEDS: FUROSEMIDE 20 MG TAB PO SCH (09:02)
[2020-10-15] MEDS: DABIGATRAN ETEXILATE 75 MG CAP (PRADAXA) PO SCH ×2 (09:03→20:15)
[2020-10-15] MEDS: PANTOPRAZOLE 40MG TAB (PROTONIX) PO SCH (09:03)
[2020-10-15] MEDS: METOPROLOL SUCC (TopROL XL) 100MG *XL* TAB PO SCH (09:03)
--- NOTE | 2020-10-15 09:53 | IPNPDOC ---
Subjective Date Seen The patient was seen on 10/15/20. Subjective Chief Complaint/HPI I he saw off of BiPAP this morning he is currently on several liters of oxygen via nasal cannula. He is confused. He does not appear to have any gross focal neurologic deficits while speaking to him. Objective Physical Examination General Exam: Positive: Cooperative, No Acute Distress, Other (the patient is able to tell me where he is, his name and his date of but he remains confused during our conversation) Eye Exam: Positive: PERRLA, Conjunctiva & lids normal, EOMI; Negative: Sclera icteric ENT Exam: Positive: Mucous membr. moist/pink, Nares Patent Neck Exam: Positive: Supple Chest Exam: Positive: Clear to auscultation, Normal air movement Heart Exam: Positive: Rate Normal, Irregular Rhythm, Normal S1, Normal S2; Negative: Murmurs, Rubs Telemetry: Positive: Atrial fibrillation Abdomen Exam: Positive: Normal bowel sounds, Soft; Negative: Tenderness, Hepatospenomegaly Extremity Exam: Positive: Normal pulses; Negative: Clubbing, Cyanosis, Edema Neuro Exam: Positive: Normal Speech, Strength at 5/5 X4 ext Psych Exam: Positive: Other (confused) Assessment /Plan Assessment # Acute on Chronic Hypercapnic Respiratory Failure # ALMA ROSA on CPAP #Acute toxic metabolic encephalopathy Patient was extubated on 10/14, he is off BiPAP this a.m. and on nasal cannula Initial CT scan of the head without contrast was normal, we'll repeat CT of the head without contrast today to see if patient has any occult strokes. He is on chronic anticoagulant so he is not a TPA candidate # Acute on chronic systolic CHF # Hypokalemia corrected Can resume oral Lasix in a.m -resume lasix 60 mg daily for 3 days and then alternate with lasix 20 mg for 1 day before resuming circuit #Iron deficiency anemia Stool occult is pending Venofer day #07/25 Patient will need follow-up with GI as an outpatient to discover his source of iron loss # Chronic A. fib Atrial Fib rate controlled Metoprolol succinate 200 mg by mouth daily switch back to pradaxa, now that he's no longer intubated # Class 2 Obesity / s/p Gastric Bypass - Complicates care DVT px pradaxa bid Dispo: transfer to PCU, PT/OT, home likely in 2-3 days Plan/VTE VTE Prophylaxis Ordered?: Yes VS, I&O, 24H, Fishbone Vital Signs/I&O Vital Signs Date Time Temp Pulse Resp B/P (MAP) Pulse Ox O2 Delivery O2 Flow Rate FiO2 10/15/20 09:03 72 108/53 10/15/20 08:01 99.7 18 96 Nasal Cannula 2.0 10/14/20 10:15 98 I&O- Last 24 Hours up to 6 AM 10/15/20 06:00 Intake Total 805.2 ml Output Total 3825 ml Balance -3019.8 ml Laboratory Data 24H LABS Laboratory Tests 2 10/14/20 12:05: Bedside Glucose (Misc Panel) 117H 10/14/20 12:59: Anion Gap 5L, Glomerular Filtration Rate > 60.0, Calcium Level 8.4L, Phosphorus Level 3.6, Albumin 3.4 10/14/20 13:02: Blood Gas Bicarbonate Standard 36.3H, Arterial Blood pH 7.536H, Arterial Blood Partial Pressure CO2 44.2, Arterial Blood Partial Pressure O2 60.3L, Arterial Blood Total CO2 38.0H, Arterial Blood HCO3 36.6H, Arterial Blood Base Excess 12.7H, Arterial Blood Oxygen Saturation 92.5L 10/14/20 17:29: Bedside Glucose (Misc Panel) 101 10/15/20 00:06: Bedside Glucose (Misc Panel) 111 10/15/20 04:51: Immature Granulocyte % (Auto) 0.7, Neutrophils (%) (Auto) 68.5H, Lymphocytes (%) (Auto) 14.5L, Monocytes (%) (Auto) 11.6H, Eosinophils (%) (Auto) 4.3H, Basophils (%) (Auto) 0.4, Neutrophils # (Auto) 6.9, Lymphocytes # (Auto) 1.5, Monocytes # (Auto) 1.2H, Eosinophils # (Auto) 0.4, Basophils # (Auto) 0.0, Nucleated Red Blood Cells % (auto) 0.0, Anion Gap 6L, Glomerular Filtration Rate > 60.0, Calcium Level 8.2L, Phosphorus Level 3.3, Total Bilirubin 1.1#H, Aspartate Amino Transf (AST/SGOT) 27, Alanine Aminotransferase (ALT/SGPT) 18, Alkaline Phosphatase 80, Lactate Dehydrogenase 223, Total Creatine Kinase 265#, Total Protein 7.3, Albumin 3.4, Albumin/Globulin Ratio 0.9, Triglycerides Level 93, Cholesterol Level 163 10/15/20 05:20: Blood Gas Bicarbonate Standard 31.6H, Arterial Blood pH 7.504H, Arterial Blood Partial Pressure CO2 41.1, Arterial Blood Partial Pressure O2 81.0, Arterial B lood Total CO2 32.9H, Arterial Blood HCO3 31.6H, Arterial Blood Base Excess 7.8H, Arterial Blood Oxygen Saturation 95.9 CBC/BMP Laboratory Tests 10/14/20 12:59 10/15/20 04:51 Microbiology Microbiology 10/13/20 Urine Culture - Final, Complete 10/12/20 Blood Culture - Preliminary, Resulted No Growth after 48 hours. All Specime... 10/12/20 Respiratory Virus Panel (PCR) ([facility]) - Final, Complete 10/12/20 Blood Culture - Preliminary, Resulted No Growth after 48 hours. All Specime... LUIS DANIEL ALVARENGA MD October 15, 2020 09:53
--- NOTE | 2020-10-15 10:11 | REP ---
INDICATION: altered mental status. COMPARISON: Comparison CT study of the brain is from October 13, 2020.. TECHNIQUE: Helical scanning is acquired. 5 mm axial images were reformatted. Coronal MPR images were generated. FINDINGS: Digital preliminary hot saw operator radiograph is unremarkable. Bone window settings demonstrate mild vascular calcification. The bony calvarium is intact. On soft tissue window settings, the lateral, 3rd, and 4th ventricles are normal in size and position. Hein-white differentiation pattern is intact. There are mild small vessel changes again noted in the periventricular white matter of the frontal lobes. Physiologic calcification is seen in the basal ganglia. There is no evidence of intracranial hemorrhage. There is no evidence of acute cortical or white matter infarction. No extra-axial fluid collection, mass, or midline shift is seen. IMPRESSION: Vascular calcification and mild generalized volume loss. Small vessel changes. No acute intracranial abnormality. Findings unchanged from October 13, 2020 study.. <Electronically signed by Bret Forrest > 10/15/20 [id number]
--- NOTE | 2020-10-15 11:42 | CCN ---
PULMONARY CRITICAL CARE NOTE DATE: 10/15/2020 SUBJECTIVE: This is hospital day #3, ICU day #3. The patient was successfully weaned and extubated from mechanical ventilation yesterday now on supplemental oxygen and gas exchange is acceptable. He is awake, conversant, but confused. OBJECTIVE: VITAL SIGNS: At bedside, his temperature is 99.7, T-max for the past 24 hours 101.1, pulse rate 70, respirations 18, blood pressure 101/52, oxygen saturation 96%. INTAKE AND OUTPUT: For the past 24 hours, 805 in and 3905 out; since midnight 240 in and 0 out. GENERAL APPEARANCE: He is ill-appearing. HEENT: His oral mucosa is pink. NECK: Supple and gabriel. I am unable to appreciate jugular veins. HEART: Sounds are irregular with somewhat distant occasional ectopy. LUNGS: Breath sounds diminished globally. No focal sounds today. ABDOMEN: Soft and obese. EXTREMITIES: Pulses are palpable x4. DIAGNOSTIC STUDIES: White cell count is up somewhat at 10.1. Differential white cell count shows no significant elevation in neutrophils. The patient has had a monocytosis since admission. His hemoglobin is 11.2, hematocrit 37.9, platelet count 361,000. Sodium is 142, potassium 3.5, chloride 104, CO2 of 32, BUN 18, creatinine 0.98, glucose 94. His bilirubin is 1.1, AST 27, ALT 18, alkaline phosphatase is only 80, and the LDH 223. Albumin of 3.4. Arterial blood gases show a pH of 7.50, pCO2 of 41, pO2 of 81 on supplemental oxygen. Chest x-ray formal report is pending. The interstitium looks better to me. There is less edema today. MEDICATIONS REVIEW: He is receiving DuoNebs four times daily, IV iron, Toprol 200 mg a day, Pradaxa has been started 150 b.i.d., Lasix 60 mg p.o. daily, and Protonix 40 mg a day. ASSESSMENT AND PLAN: 1. The primary problem requiring critical attention is hypoxemia. We will continue with supplemental oxygen and maintain saturations in the 90s. 2. Pulmonary edema. The patient has responded to diuretics. Lung compliance has improved and with it gas exchange. 3. Obstructive sleep apnea syndrome. The patient had been maintained at home on CPAP of 12 and will need to continue with nightly use of CPAP. I am concerned that he may be nearing the threshold for obesity hypoventilation syndrome and close clinical follow-up will be necessary. 4. Fever. The patient has had a T-max for the past 24 hours of 101 and his white cell count is up some. There is no focal sign of infection. Would continue to closely monitor indices of infection. 5. Confusional state versus dementia versus cerebrovascular accident (CVA). Noncontrast CT scan was negative earlier. I will defer to the hospitalist on further evaluation. Perhaps his acute illness aggravated an underlying dementia. 6. Deep vein thrombosis (DVT) and ulcer prophylaxis are being addressed. The patient's condition is critical, but improving. I have reviewed the patient's status and care plan for the day with the ICU nursing team. He could be considered for a downgrade pending his stability. CRITICAL CARE TIME: 62 minutes was spent in the provision of bedside critical care and coordination, excluding any time for the performance of procedures.
[2020-10-15] MEDS ORDERED: HumaLOG INSULIN (NovoLOG) PER UNIT SC SCH ×2 (12:00→21:00)
[2020-10-15] MEDS: IRON SUCROSE 100 MG in NS 100 ML IV SCH (12:23)
--- NOTE | 2020-10-15 12:37 | ECHO ---
DATE OF PROCEDURE: 10/13/2020 Age: 70 Gender: Male Height: 180 cm Weight: 138 kg REFERRING PHYSICIAN: Maddy Bazan MD. INDICATION: Heart failure, unspecified. MEASUREMENTS: 2D Measurements: Left atrium 5.2 cm Left atrial volume index 76 cm Aortic root 3.5 cm Intraventricular septum 1.41 cm Posterior wall 1.37 cm Left ventricle diastole 4.6 cm Proximal ascending aorta 3.7 cm Inferior vena cava 2.5 cm Doppler Measurements: No aortic stenosis No aortic regurgitation Aortic valve velocity 118 cm/s LVOT velocity 102 cm/s LVOT VTI 17.3 cm Trace mitral regurgitation No mitral stenosis Mitral E velocity 111 cm/s Mitral deceleration time 187 msec Mild tricuspid regurgitation Estimated right ventricular systolic pressure 35-40 mmHg Estimated right atrial pressure 5-10 mmHg Pulmonary artery acceleration time 140 msec No pulmonic regurgitation MITRAL ANNULAR TISSUE DOPPLER E prime septal 9.0 cm/s, E prime lateral 11.5 cm/s DESCRIPTION: Rhythm was ventricular paced. This was a moderately technically difficult echocardiogram. This was a 2D, M-mode, color flow Doppler, and pulsed wave Doppler examination including mitral annular tissue Doppler. No pericardial effusion. CONCLUSIONS: 1. Mild concentric left ventricular hypertrophy. Normal regional LV wall motion and wall thickening. No paradoxical septal motion. Normal LV systolic function. LVEF 60% by visual estimate. Left ventricular diastolic function could not be determined because no A waves were present. 2. Moderate aortic valve sclerosis of a 3-cuspid aortic valve. No aortic stenosis or regurgitation. 3. Moderate mitral annular calcification. Trace mitral regurgitation. No mitral stenosis. 4. Severe left atrial dilatation. 5. Mildly dilated right ventricle with normal RV systolic function. Severe right atrial dilatation. Suggestive of mild-moderate elevation of estimated right ventricle systolic pressure. 6. Presence of cardiac rhythm management leads (probably an RV defibrillator lead and a coronary sinus LV pacing lead, at least. 7. No pericardial effusion. MTDD
[2020-10-15 13:12] LABS: FOLATE 11.3 NG/ML (>5.4); VITAMIN B12 LEVEL 231 PG/ML (247-911)
[2020-10-16] VITALS: BP 110/66
[2020-10-16 04:00] VITALS: BP 103/59
[2020-10-16 05:02] LABS: BASO % 0.3 % (0.0-1.0); EOS % 9.6 % (0.0-3.0); HEMATOCRIT 38.3 % (42.0-52.0); HEMOGLOBIN 11.1 g/dl (13.5-17.5); LYMPH # 1.6 10^3/uL (1.5-5.0); LYMPH % 15.7 % (24.0-44.0); MEAN CORPUSCULAR HEMOGLOBIN 21.6 pg (27.0-33.0); MEAN CORPUSCULAR VOLUME 74.4 fl (80.0-96.0); MONO % 9.9 % (2.0-8.0); NEUTROPHILS # 6.3 10^3/uL (1.5-8.5); NEUTROPHILS % 63.9 % (36.0-66.0); PLATELET COUNT, AUTOMATED 339 10^3/uL (150-450); RED BLOOD COUNT 5.15 10^6/uL (4.30-6.10); WHITE BLOOD COUNT 9.9 10^3/uL (4.0-10.0)
[2020-10-16 05:27] LABS: ALBUMIN 3.2 GM/DL (3.2-5.2); ALT/SGPT 16 U/L (12-78); BILIRUBIN,TOTAL 0.8 MG/DL (0.2-1.0); BLOOD UREA NITROGEN 23 MG/DL (7-18); CALCIUM LEVEL 8.4 MG/DL (8.8-10.2); CARBON DIOXIDE LEVEL 32 MEQ/L (21-32); CHLORIDE LEVEL 103 MEQ/L (98-107); CHOLESTEROL LEVEL 168 MG/DL (< 200); CPK CREATINE PHOSPHOKINASE 123 U/L (39-308); CREATININE FOR GFR 0.94 MG/DL (0.70-1.30); GLOMERULAR FILTRATION RATE > 60.0 (>49); GLUCOSE, FASTING 94 MG/DL (70-100); LDH LACTATE DEHYDROGENASE 195 U/L (87-241); MAGNESIUM LEVEL 2.3 MG/DL (1.8-2.4); PHOSPHORUS LEVEL 3.1 MG/DL (2.5-4.9); POTASSIUM SERUM 3.3 MEQ/L (3.5-5.1); SODIUM LEVEL 141 MEQ/L (136-145); TOTAL PROTEIN 7.2 GM/DL (6.4-8.2); TRIGLYCERIDES LEVEL 112 MG/DL (<150)
[2020-10-16 05:54] LABS: ABG HCO3 32.8 MEQ/L (22.0-26.0); ABG O2 SATURATION 94.8 % (95.0-99.0); ABG PARTIAL PRESSURE CO2 46.7 mmHg (35.0-45.0); ABG PARTIAL PRESSURE O2 74.2 mmHg (75.0-100.0); ABG STANDARD HCO3 31.8 MEQ/L (22.0-26.0); ABG TOTAL CO2 34.3 MEQ/L (23.0-31.0); ABG pH (ARTERIAL) 7.465 UNITS (7.350-7.450)
[2020-10-16] MEDS ORDERED: POTASSIUM CHLORIDE 10 MEQ SR TABLET PO ONE (07:30)
[2020-10-16 07:31] VITALS: BP 127/65
[2020-10-16] MEDS: IPRATROPIUM 0.5MG/ALBUTEROL 2.5MG INH SOL UD 3ML (DUONEB) NEB SCH ×2 (07:44→10:57)
[2020-10-16] MEDS: FUROSEMIDE 20 MG TAB PO SCH (08:52)
[2020-10-16] MEDS: DABIGATRAN ETEXILATE 75 MG CAP (PRADAXA) PO SCH (08:52)
[2020-10-16 08:53] VITALS: BP 127/65
[2020-10-16] MEDS: PANTOPRAZOLE 40MG TAB (PROTONIX) PO SCH (08:53)
[2020-10-16] MEDS: METOPROLOL SUCC (TopROL XL) 100MG *XL* TAB PO SCH (08:53)
[2020-10-16] MEDS ORDERED: ALBU8.5H INH (11:26)
--- NOTE | 2020-10-16 11:50 | REP ---
INDICATION: ett, pulm edema. COMPARISON: Comparison chest x-ray October 15, 2020. TECHNIQUE: Portable upright AP chest radiograph. FINDINGS: Bipolar pacemaker is seen in place via the left subclavian vein. EKG monitoring electrodes are noted. Moderate cardiac enlargement is again seen. Pulmonary vasculature is cephalized. No infiltrate is seen.. IMPRESSION: Cardiomegaly with pacemaker. Vascular congestion. No focal infiltrate.. <Electronically signed by Bret Forrest > 10/16/20 [id number]
--- NOTE | 2020-10-16 23:07 | DS.PDOC ---
Discharge Summary General Date of Admission October 12, 2020 at 22:08 Date of Discharge October 16, 2020 Specialist/Consultants [facility]/Critical care, Dr. Tucker Discharge Summary PROCEDURES PERFORMED DURING STAY: [None]. ADMITTING DIAGNOSES: 1. Acute on chronic hypercapnic respiratory failure 2. Acute on chronic heart failure with preserved ejection fraction 3. Iron deficient, microcytic anemia 4. Atrial fibrillation 5. Class 2 obesity s/p gastric bypass 6. Obstructive sleep apnea on CPAP 7. Acute toxic metabolic encephalopathy DISCHARGE DIAGNOSES: 1. Acute on chronic hypercapnic respiratory failure 2. Acute on chronic heart failure with preserved ejection fraction 3. Iron deficient, microcytic anemia 4. Atrial fibrillation 5. Class 2 obesity s/p gastric bypass 6. Obstructive sleep apnea on CPAP 7. Acute toxic metabolic encephalopathy COMPLICATIONS/CHIEF COMPLAINT: CHF. HISTORY OF PRESENT ILLNESS: Copied from admitting physician's H&P " This 70 yr old M has been short of breath, having a runny nose , congestion, & BLE edema for about 1.5 weeks; he denied having CP and came to the hospital bc his insisted that he comes. She noticed that he has been lethargic and slurring his speech since he stopped using his CPAP machine which is packed in a box bc they are moving. They admit to eating out more at restaurants recently. " HOSPITAL COURSE: During hospitalization, patient became obtunded 2/2 hypercapnic respiratory failure with a pCO2 85.6 and pCO2 of 7.217. Critical care/pulmonology was consulted and patient was intubated. Patient was intubated from 10/12/20 to 10/14/20. During this time patient was being diuresed. After extubation, patient was confused, which may have been secondary to sedation. Today, patient was clear and A&Ox3. He denied any chest pain or dyspnea. He passed physical therapy. He felt ready for home and was subsequently discharged home with home health services. DISCHARGE MEDICATIONS: Please see below. ALLERGIES: Please see below. PHYSICAL EXAMINATION ON DISCHARGE: VITAL SIGNS: Please see below. GENERAL: Comfortable, in no apparent distress HEENT: Head normocephalic, atraumatic NECK: Supple CARDIOVASCULAR EXAMINATION: Regular rate and regular rhythm RESPIRATORY EXAMINATION: Lungs clear to auscultation bilaterally ABDOMINAL EXAMINATION: Soft, non-tender, normal bowel sounds EXTREMITIES: No pitting edema bilaterally SKIN: Warm and dry NEUROLOGICAL EXAMINATION: CN 3-12 grossly intact, A&O x3 PSYCHIATRIC EXAMINATION: Normal mood and affect LABORATORY DATA: Please see below. IMAGING: Radiologist interpretation CT angio chest 1. Moderate right pleural effusion. 2. No evidence of pulmonary embolus. 3. Moderate cardiomegaly with mild congestive changes. CT head Generalized volume loss, vascular calcification, mild small vessel changes. No acute intracranial abnormality PROGNOSIS: Good ACTIVITY: As tolerated. DIET: 2gm sodium diet DISCHARGE PLAN: Home with home health services DISPOSITION: Home, Self-Care. DISCHARGE INSTRUCTIONS: 1. Follow up with PCP within 1 week. 2. Follow up with pulmonary in 1 week for management of ALMA ROSA. ITEMS TO FOLLOWUP ON ON OUTPATIENT: 1. CPAP compliance 2. GI referral for iron deficiency anemia and colonoscopy if patient is due for colorectal cancer screening DISCHARGE CONDITION: Stable. Total time spent on discharge planning, discharge summary, and medication reconciliation: 45 minutes Vital Signs/I&Os Vital Signs Date Time Temp Pulse Resp B/P (MAP) Pulse Ox O2 Delivery O2 Flow Rate FiO2 10/16/20 08:53 75 127/65 10/16/20 07:31 98.1 20 94 Room Air 10/16/20 05:00 2.0 10/14/20 10:15 98 I&O- Last 24 Hours up to 6 AM 10/16/20 06:00 Intake Total 1480 ml Output Total 1085 ml Balance 395 ml Laboratory Data Labs 24H Laboratory Tests 2 10/16/20 04:51: Immature Granulocyte % (Auto) 0.6, Neutrophils (%) (Auto) 63.9, Lymphocytes (%) (Auto) 15.7L, Monocytes (%) (Auto) 9.9H, Eosinophils (%) (Auto) 9.6H, Basophils (%) (Auto) 0.3, Neutrophils # (Auto) 6.3, Lymphocytes # (Auto) 1.6, Monocytes # (Auto) 1.0H, Eosinophils # (Auto) 1.0H, Basophils # (Auto) 0.0, Nucleated Red Blood Cells % (auto) 0.0, Anion Gap 6L, Glomerular Filtration Rate > 60.0, Calcium Level 8.4L, Phosphorus Level 3.1, Magnesium Level 2.3, Total Bilirubin 0.8, Aspartate Amino Transf (AST/SGOT) 25, Alanine Aminotransferase (ALT/SGPT) 16, Alkaline Phosphatase 74, Lactate Dehydrogenase 195, Total Creatine Kinase 123, Total Protein 7.2, Albumin 3.2, Albumin/Globulin Ratio 0.8, Triglycerides Level 112, Cholesterol Level 168 10/16/20 05:50: Blood Gas Bicarbonate Standard 31.8H, Arterial Blood pH 7.465H, Arterial Blood Partial Pressure CO2 46.7H, Arterial Blood Partial Pressure O2 74.2L, Arterial Blood Total CO2 34.3H, Arterial Blood HCO3 32.8H, Arterial Blood Base Excess 8.0H, Arterial Blood Oxygen Saturation 94.8L CBC/BMP Laboratory Tests 10/16/20 04:51 Microbiology Microbiology 10/13/20 Urine Culture - Final, Complete 10/12/20 Blood Culture - Preliminary, Resulted No Growth after 72 hours. All specime... 10/12/20 Respiratory Virus Panel (PCR) ([facility]) - Final, Complete 10/12/20 Blood Culture - Preliminary, Resulted No Growth after 72 hours. All specime... Discharge Medications Scheduled Cholecalciferol (Vitamin D3) (Vitamin D3) 25 Mcg Capsule, 25 MCG PO DAILY, (Reported) Dabigatran Etexilate Mesylate (Pradaxa) 150 Mg Capsule, 150 MG PO BID, (Reported) Furosemide (Furosemide) 20 Mg Tablet, 60 MG PO QAM, (Reported) takes for 3 days,then takes 20mg day for 1 day Furosemide (Furosemide) 20 Mg Tablet, 20 MG PO DAILY, (Reported) Metoprolol Succinate (Metoprolol Succinate) 200 Mg Tab.er.24h, 200 MG PO DAILY, (Reported) Scheduled PRN Albuterol Sulfate (Albuterol Sulfate Hfa) 8.5 Gm Hfa.aer.ad, 2 PUFFS INH Q4HP PRN for shortness of breath Miscellaneous Medications [med rec comment] , (Reported) states pt takes lasix 60mg qam and 20mg at 1600 for 3 days then drops down to 20mgs daily for 1 day. Allergies Coded Allergies: No Known Allergies (Unverified , 06/13/14) KIAH KELLY DO October 16, 2020 23:07
== END 2020-10-16 15:30 | disposition home or self-care (01) | DRG 208 ==
LOC: M ED 16:26 → M ED INP 22:08 → ENRESERV 22:38 → M ICU 10-13 00:02
PROVIDERS: ADMIT Internal Medicine; ATTEND Internal Medicine
PROC: 5A1945Z Respiratory Ventilation, 24-96 Consecutive Hours (ICD-10-PCS; principal; 2020-10-13)
DX: J96.22 Acute and chronic respiratory failure with hypercapnia (principal); I50.23 Acute on chronic systolic (congestive) heart failure; G92 Toxic encephalopathy; I48.20 Chronic atrial fibrillation, unspecified; J96.01 Acute respiratory failure with hypoxia; D50.9 Iron deficiency anemia, unspecified; I27.20 Pulmonary hypertension, unspecified; E87.6 Hypokalemia; G47.33 Obstructive sleep apnea (adult) (pediatric); Z79.899 Other long term (current) drug therapy; E66.9 Obesity, unspecified

== ENCOUNTER 2021-10-10 04:28 | Inpatient (IN) | payer MEDICARE, OTHER ==
[~2021-10-10] VITALS: Ht 180.3 cm; Wt 128.2 kg
[2021-10-10] VITALS (9 sets, daily range): BP systolic 106–172; BP diastolic 61–83; O2SAT 92
[~2021-10-10 04:28] MED LIST: ALBU8.5H INH; D 1010004 PO; DICL1GEL3 TOP; FURO20TA2 PO; METO200T28 PO; PRAD150C6 PO; PRAV20TA2 PO; SILD100T PO; med rec comment
[2021-10-10] MEDS ORDERED: dexameTHASONE 20MG/5ML VIAL (J1100 PER 1MG) IV ONE (04:45)
[2021-10-10] MEDS ORDERED: NITROGLYCERIN 2% OINT 1 GM *U/D* PKT TOP ONE (04:45)
[2021-10-10 04:52] LABS: ABG BASE EXCESS 6.9 (-2.0-2.0); ABG HCO3 36.3 MEQ/L (22.0-26.0); ABG O2 SATURATION 95.4 % (95.0-99.0); ABG STANDARD HCO3 30.7 MEQ/L (22.0-26.0); ABG TOTAL CO2 38.7 MEQ/L (23.0-31.0); ABG pH (ARTERIAL) 7.288 UNITS (7.350-7.450)
[2021-10-10 04:54] LABS: ABG PARTIAL PRESSURE CO2 77.6 mmHg (35.0-45.0)
[2021-10-10 04:58] LABS: BASO # 0.1 10^3/uL (0.0-0.2); BASO % 0.5 % (0.0-1.0); EOS # 0.1 10^3/uL (0.0-0.5); EOS % 1.1 % (0.0-3.0); HEMATOCRIT 46.3 % (42.0-52.0); HEMOGLOBIN 13.3 g/dl (13.5-17.5); LYMPH # 1.5 10^3/uL (1.5-5.0); LYMPH % 13.9 % (24.0-44.0); MEAN CORPUSCULAR HEMOGLOBIN 24.8 pg (27.0-33.0); MEAN CORPUSCULAR HGB CONC 28.7 g/dl (32.0-36.5); MEAN CORPUSCULAR VOLUME 86.2 fl (80.0-96.0); MONO # 0.8 10^3/uL (0.0-0.8); MONO % 7.7 % (2.0-8.0); NEUTROPHILS # 8.3 10^3/uL (1.5-8.5); NEUTROPHILS % 76.3 % (36.0-66.0); PLATELET COUNT, AUTOMATED 319 10^3/uL (150-450); RED BLOOD COUNT 5.37 10^6/uL (4.30-6.10); WHITE BLOOD COUNT 10.8 10^3/uL (4.0-10.0)
[2021-10-10 05:09] LABS: INR 1.23; PROTHROMBIN TIME 15.9 SECONDS (12.7-14.5)
[2021-10-10 05:26] LABS: CK-MB VALUE MASS 1.3 NG/ML (<3.6); MB/CK RELATIVE INDEX 3.51 (< OR =4)
[2021-10-10] MEDS: COMBIVENT RESPIMAT 100-20MCG INHALER 4GM INH SCH ×2 (05:28→05:29)
[2021-10-10 05:31] LABS: ALBUMIN 3.6 GM/DL (3.2-5.2); ALT/SGPT 18 U/L (12-78); BILIRUBIN,DIRECT 0.2 MG/DL (0.0-0.2); BILIRUBIN,TOTAL 0.5 MG/DL (0.2-1.0); BLOOD UREA NITROGEN 28 MG/DL (7-18); CALCIUM LEVEL 9.3 MG/DL (8.8-10.2); CARBON DIOXIDE LEVEL 38 MEQ/L (21-32); CHLORIDE LEVEL 104 MEQ/L (98-107); GLOMERULAR FILTRATION RATE > 60.0 (>49); GLUCOSE, FASTING 111 MG/DL (70-100); NT-PRO BNP 1163 PG/ML (<125); POTASSIUM SERUM 3.9 MEQ/L (3.5-5.1); SODIUM LEVEL 146 MEQ/L (136-145); TOTAL PROTEIN 7.7 GM/DL (6.4-8.2)
[2021-10-10] MEDS ORDERED: ALBU8.5H INH (06:53)
[2021-10-10] MEDS ORDERED: ATOR1TAB21 PO (06:53)
[2021-10-10] MEDS ORDERED: LEVO500T4 PO (06:53)
[2021-10-10] MEDS ORDERED: GABA-1171 PO (06:53)
[2021-10-10] MEDS ORDERED: CYAN100049 PO (06:53)
[2021-10-10] MEDS ORDERED: FURO20TA2 PO (06:53)
[2021-10-10] MEDS ORDERED: D-3-50003 PO (06:53)
[2021-10-10] MEDS ORDERED: HOME MED LIST COMPLETE! XX SCH (06:55)
[2021-10-10 07:28] LABS: MB/CK RELATIVE INDEX 2.86 (< OR =4)
[2021-10-10] MEDS ORDERED: LEVALBUTEROL HFA 45MCG/ACT 15 GM INHALER INH PRN (07:30)
[2021-10-10] MEDS: GABAPENTIN 100 MG CAP PO SCH ×4 (09:00→21:00)
[2021-10-10] MEDS: IPRATROPIUM 0.5MG/ALBUTEROL 2.5MG INH SOL UD 3ML (DUONEB) NEB SCH ×4 (09:19→20:41)
[2021-10-10] MEDS ORDERED: DOXYCYCLINE HYCLATE 100 MG in D5W MINI-BAG PLUS 100 ML IV SCH (10:00)
[2021-10-10 10:15] LABS: ABG BASE EXCESS 4.7 (-2.0-2.0); ABG HCO3 33.6 MEQ/L (22.0-26.0); ABG O2 SATURATION 95.1 % (95.0-99.0); ABG STANDARD HCO3 28.6 MEQ/L (22.0-26.0); ABG TOTAL CO2 35.9 MEQ/L (23.0-31.0); ABG pH (ARTERIAL) 7.285 UNITS (7.350-7.450)
[2021-10-10 10:18] LABS: ABG PARTIAL PRESSURE CO2 72.4 mmHg (35.0-45.0)
[2021-10-10] MEDS ORDERED: CEFEPIME HCL 2 GM in D5W MINI-BAG PLUS 50 ML IV SCH (11:00)
[2021-10-10] MEDS ORDERED: REMDESIVIR 200 MG in NS 250 ML IV ONE (11:00)
[2021-10-10] MEDS: FUROSEMIDE 20MG/2ML VIAL (J1940) IV SCH (12:26)
[2021-10-10] MEDS ORDERED: SODIUM CHLORIDE 0.9% INJ 10 ML SYR IV ONE (13:00)
[2021-10-10] MEDS: CEFEPIME HCL 2 GM in D5W MINI-BAG PLUS 50 ML IV SCH ×2 (14:31→21:03)
[2021-10-10 14:43] LABS: ABG BASE EXCESS 10.9 (-2.0-2.0); ABG HCO3 37.9 MEQ/L (22.0-26.0); ABG O2 SATURATION 88.9 % (95.0-99.0); ABG PARTIAL PRESSURE CO2 61.5 mmHg (35.0-45.0); ABG STANDARD HCO3 34.4 MEQ/L (22.0-26.0); ABG TOTAL CO2 39.8 MEQ/L (23.0-31.0); ABG pH (ARTERIAL) 7.408 UNITS (7.350-7.450)
[2021-10-10] MEDS: DOXYCYCLINE HYCLATE 100 MG in D5W MINI-BAG PLUS 100 ML IV SCH (15:10)
[2021-10-10] MEDS: DABIGATRAN ETEXILATE 75 MG CAP (PRADAXA) PO SCH ×2 (15:10→21:03)
[2021-10-10] MEDS: ATORVASTATIN 20 MG TAB PO SCH (15:11)
[2021-10-10] MEDS: BARICITINIB 2MG TABLET (OLUMIANT) FOR EUA PO SCH (15:12)
[2021-10-10] MEDS: CYANOCOBALAMIN 500 MCG TAB PO SCH (15:13)
[2021-10-10] MEDS: dexameTHASONE 20MG/5ML VIAL (J1100 PER 1MG) IV SCH (21:03)
[2021-10-10] MEDS ORDERED: ONDANSETRON 4MG ORAL DISINTEGRATING TAB SL PRN (21:45)
[2021-10-11] VITALS (9 sets, daily range): BP systolic 104–145; BP diastolic 60–73; O2SAT 92
[2021-10-11] MEDS: DOXYCYCLINE HYCLATE 100 MG in D5W MINI-BAG PLUS 100 ML IV SCH ×2 (02:27→15:39)
[2021-10-11 04:38] LABS: HEMATOCRIT 41.4 % (42.0-52.0); LYMPH % 11.6 % (24.0-44.0); MEAN CORPUSCULAR HEMOGLOBIN 24.5 pg (27.0-33.0); MEAN CORPUSCULAR VOLUME 84.7 fl (80.0-96.0); MONO # 0.3 10^3/uL (0.0-0.8); MONO % 3.3 % (2.0-8.0); NEUTROPHILS # 6.9 10^3/uL (1.5-8.5); NEUTROPHILS % 84.6 % (36.0-66.0); PLATELET COUNT, AUTOMATED 318 10^3/uL (150-450); RED BLOOD COUNT 4.89 10^6/uL (4.30-6.10); WHITE BLOOD COUNT 8.2 10^3/uL (4.0-10.0)
[2021-10-11] MEDS: IPRATROPIUM 0.5MG/ALBUTEROL 2.5MG INH SOL UD 3ML (DUONEB) NEB SCH ×7 (04:50→23:34)
[2021-10-11 05:03] LABS: ALBUMIN 3.1 GM/DL (3.2-5.2); ALT/SGPT 15 U/L (12-78); BILIRUBIN,DIRECT 0.2 MG/DL (0.0-0.2); BILIRUBIN,TOTAL 0.6 MG/DL (0.2-1.0); BLOOD UREA NITROGEN 37 MG/DL (7-18); CALCIUM LEVEL 9.2 MG/DL (8.8-10.2); CARBON DIOXIDE LEVEL 37 MEQ/L (21-32); CHLORIDE LEVEL 103 MEQ/L (98-107); CREATININE FOR GFR 0.89 MG/DL (0.70-1.30); GLOMERULAR FILTRATION RATE > 60.0 (>49); GLUCOSE, FASTING 153 MG/DL (70-100); MAGNESIUM LEVEL 2.2 MG/DL (1.8-2.4); PHOSPHORUS LEVEL 3.3 MG/DL (2.5-4.9); POTASSIUM SERUM 4.2 MEQ/L (3.5-5.1); SODIUM LEVEL 144 MEQ/L (136-145); TOTAL PROTEIN 6.7 GM/DL (6.4-8.2)
[2021-10-11] MEDS: CEFEPIME HCL 2 GM in D5W MINI-BAG PLUS 50 ML IV SCH ×3 (05:06→22:49)
[2021-10-11 07:55] LABS: ABG BASE EXCESS 8.6 (-2.0-2.0); ABG HCO3 34.7 MEQ/L (22.0-26.0); ABG PARTIAL PRESSURE CO2 54.4 mmHg (35.0-45.0); ABG PARTIAL PRESSURE O2 77.4 mmHg (75.0-100.0); ABG STANDARD HCO3 32.3 MEQ/L (22.0-26.0); ABG TOTAL CO2 36.4 MEQ/L (23.0-31.0); ABG pH (ARTERIAL) 7.423 UNITS (7.350-7.450)
[2021-10-11] MEDS: BARICITINIB 2MG TABLET (OLUMIANT) FOR EUA PO SCH (08:58)
[2021-10-11] MEDS: DABIGATRAN ETEXILATE 75 MG CAP (PRADAXA) PO SCH ×2 (08:58→20:12)
[2021-10-11] MEDS: ATORVASTATIN 20 MG TAB PO SCH (08:59)
[2021-10-11] MEDS: CYANOCOBALAMIN 500 MCG TAB PO SCH (08:59)
[2021-10-11] MEDS: FUROSEMIDE 20MG/2ML VIAL (J1940) IV SCH (08:59)
[2021-10-11] MEDS: GABAPENTIN 100 MG CAP PO SCH (08:59)
[2021-10-11] MEDS: dexameTHASONE 20MG/5ML VIAL (J1100 PER 1MG) IV SCH ×2 (09:00→20:12)
[2021-10-11] MEDS: PANTOPRAZOLE 40MG VIAL IV SCH (11:01)
[2021-10-11] MEDS: REMDESIVIR 100 MG in NS 250 ML IV SCH (11:01)
[2021-10-11] MEDS: SODIUM CHLORIDE 0.9% INJ 10 ML SYR IV SCH (12:00)
[2021-10-12] VITALS (10 sets, daily range): BP systolic 100–148; BP diastolic 51–96; O2SAT 92–94
[2021-10-12] MEDS: DOXYCYCLINE HYCLATE 100 MG in D5W MINI-BAG PLUS 100 ML IV SCH (03:39)
[2021-10-12] MEDS: IPRATROPIUM 0.5MG/ALBUTEROL 2.5MG INH SOL UD 3ML (DUONEB) NEB SCH ×6 (03:48→23:59)
[2021-10-12 04:19] LABS: BASO % 0.1 % (0.0-1.0); HEMATOCRIT 38.2 % (42.0-52.0); HEMOGLOBIN 11.6 g/dl (13.5-17.5); LYMPH # 0.8 10^3/uL (1.5-5.0); MEAN CORPUSCULAR HEMOGLOBIN 24.8 pg (27.0-33.0); MEAN CORPUSCULAR HGB CONC 30.4 g/dl (32.0-36.5); MEAN CORPUSCULAR VOLUME 81.8 fl (80.0-96.0); MONO # 0.4 10^3/uL (0.0-0.8); MONO % 3.8 % (2.0-8.0); NEUTROPHILS # 9.2 10^3/uL (1.5-8.5); NEUTROPHILS % 87.4 % (36.0-66.0); PLATELET COUNT, AUTOMATED 304 10^3/uL (150-450); RED BLOOD COUNT 4.67 10^6/uL (4.30-6.10); WHITE BLOOD COUNT 10.5 10^3/uL (4.0-10.0)
[2021-10-12 04:51] LABS: ALT/SGPT 13 U/L (12-78); BILIRUBIN,TOTAL 0.6 MG/DL (0.2-1.0); BLOOD UREA NITROGEN 33 MG/DL (7-18); CALCIUM LEVEL 8.8 MG/DL (8.8-10.2); CARBON DIOXIDE LEVEL 34 MEQ/L (21-32); CHLORIDE LEVEL 103 MEQ/L (98-107); CREATININE FOR GFR 0.86 MG/DL (0.70-1.30); GLOMERULAR FILTRATION RATE > 60.0 (>49); GLUCOSE, FASTING 156 MG/DL (70-100); MAGNESIUM LEVEL 2.2 MG/DL (1.8-2.4); PHOSPHORUS LEVEL 3.9 MG/DL (2.5-4.9); SODIUM LEVEL 140 MEQ/L (136-145); TOTAL PROTEIN 6.7 GM/DL (6.4-8.2)
[2021-10-12] MEDS: CEFEPIME HCL 2 GM in D5W MINI-BAG PLUS 50 ML IV SCH ×3 (06:12→21:11)
[2021-10-12] MEDS: FUROSEMIDE 20MG/2ML VIAL (J1940) IV SCH (09:00)
[2021-10-12] MEDS: dexameTHASONE 20MG/5ML VIAL (J1100 PER 1MG) IV SCH (09:00)
[2021-10-12] MEDS: PANTOPRAZOLE 40MG VIAL IV SCH (09:02)
[2021-10-12] MEDS: DABIGATRAN ETEXILATE 75 MG CAP (PRADAXA) PO SCH ×2 (09:03→21:10)
[2021-10-12] MEDS: BARICITINIB 2MG TABLET (OLUMIANT) FOR EUA PO SCH (09:03)
[2021-10-12] MEDS: ATORVASTATIN 20 MG TAB PO SCH (09:04)
[2021-10-12] MEDS: CYANOCOBALAMIN 500 MCG TAB PO SCH (09:04)
[2021-10-12] MEDS: REMDESIVIR 100 MG in NS 250 ML IV SCH (11:09)
[2021-10-12] MEDS: DOXYCYCLINE HYCLATE 100MG TABLET PO SCH ×2 (12:05→21:10)
[2021-10-12] MEDS: SODIUM CHLORIDE 0.9% INJ 10 ML SYR IV SCH (12:21)
[2021-10-13] VITALS (7 sets, daily range): BP systolic 132–149; BP diastolic 69–83; O2SAT 95
[2021-10-13] MEDS: IPRATROPIUM 0.5MG/ALBUTEROL 2.5MG INH SOL UD 3ML (DUONEB) NEB SCH ×5 (03:03→19:39)
[2021-10-13] MEDS: CEFEPIME HCL 2 GM in D5W MINI-BAG PLUS 50 ML IV SCH (05:42)
[2021-10-13 08:07] LABS: HEMATOCRIT 40.8 % (42.0-52.0); HEMOGLOBIN 12.3 g/dl (13.5-17.5); MEAN CORPUSCULAR HEMOGLOBIN 24.5 pg (27.0-33.0); MEAN CORPUSCULAR HGB CONC 30.1 g/dl (32.0-36.5); MEAN CORPUSCULAR VOLUME 81.3 fl (80.0-96.0); PLATELET COUNT, AUTOMATED 313 10^3/uL (150-450); RED BLOOD COUNT 5.02 10^6/uL (4.30-6.10); WHITE BLOOD COUNT 11.8 10^3/uL (4.0-10.0)
[2021-10-13 08:34] LABS: BLOOD UREA NITROGEN 31 MG/DL (7-18); CARBON DIOXIDE LEVEL 33 MEQ/L (21-32); CHLORIDE LEVEL 103 MEQ/L (98-107); CREATININE FOR GFR 0.79 MG/DL (0.70-1.30); GLOMERULAR FILTRATION RATE > 60.0 (>49); GLUCOSE, FASTING 90 MG/DL (70-100); MAGNESIUM LEVEL 2.4 MG/DL (1.8-2.4); PHOSPHORUS LEVEL 2.9 MG/DL (2.5-4.9); POTASSIUM SERUM 3.6 MEQ/L (3.5-5.1); SODIUM LEVEL 141 MEQ/L (136-145)
[2021-10-13] MEDS: CYANOCOBALAMIN 500 MCG TAB PO SCH (08:56)
[2021-10-13] MEDS: ATORVASTATIN 20 MG TAB PO SCH (08:56)
[2021-10-13] MEDS: dexameTHASONE 20MG/5ML VIAL (J1100 PER 1MG) IV SCH (08:56)
[2021-10-13] MEDS: DOXYCYCLINE HYCLATE 100MG TABLET PO SCH (08:56)
[2021-10-13] MEDS: DABIGATRAN ETEXILATE 75 MG CAP (PRADAXA) PO SCH ×2 (08:56→22:36)
[2021-10-13] MEDS: BARICITINIB 2MG TABLET (OLUMIANT) FOR EUA PO SCH (08:56)
[2021-10-13] MEDS: FUROSEMIDE 20 MG TAB PO SCH (08:57)
[2021-10-13] MEDS: REMDESIVIR 100 MG in NS 250 ML IV SCH (10:42)
[2021-10-13] MEDS: SODIUM CHLORIDE 0.9% INJ 10 ML SYR IV SCH (13:11)
[2021-10-14] VITALS (7 sets, daily range): BP systolic 136–153; BP diastolic 72–81; O2SAT 94–95
[2021-10-14] MEDS: IPRATROPIUM 0.5MG/ALBUTEROL 2.5MG INH SOL UD 3ML (DUONEB) NEB SCH ×6 (01:14→19:38)
[2021-10-14 08:15] LABS: BASO % 0.2 % (0.0-1.0); EOS # 0.1 10^3/uL (0.0-0.5); EOS % 0.5 % (0.0-3.0); HEMATOCRIT 39.1 % (42.0-52.0); LYMPH # 1.4 10^3/uL (1.5-5.0); MEAN CORPUSCULAR HEMOGLOBIN 25.2 pg (27.0-33.0); MEAN CORPUSCULAR HGB CONC 30.7 g/dl (32.0-36.5); MEAN CORPUSCULAR VOLUME 82.1 fl (80.0-96.0); MONO # 1.5 10^3/uL (0.0-0.8); MONO % 11.3 % (2.0-8.0); NEUTROPHILS # 9.9 10^3/uL (1.5-8.5); NEUTROPHILS % 76.1 % (36.0-66.0); PLATELET COUNT, AUTOMATED 292 10^3/uL (150-450); RED BLOOD COUNT 4.76 10^6/uL (4.30-6.10); WHITE BLOOD COUNT 13.1 10^3/uL (4.0-10.0)
[2021-10-14 08:44] LABS: BLOOD UREA NITROGEN 29 MG/DL (7-18); CALCIUM LEVEL 9.3 MG/DL (8.8-10.2); CARBON DIOXIDE LEVEL 34 MEQ/L (21-32); CHLORIDE LEVEL 103 MEQ/L (98-107); CREATININE FOR GFR 0.84 MG/DL (0.70-1.30); GLOMERULAR FILTRATION RATE > 60.0 (>49); GLUCOSE, FASTING 124 MG/DL (70-100); MAGNESIUM LEVEL 2.4 MG/DL (1.8-2.4); PHOSPHORUS LEVEL 2.8 MG/DL (2.5-4.9); POTASSIUM SERUM 3.8 MEQ/L (3.5-5.1); SODIUM LEVEL 140 MEQ/L (136-145)
[2021-10-14] MEDS: dexameTHASONE 20MG/5ML VIAL (J1100 PER 1MG) IV SCH (09:27)
[2021-10-14] MEDS: ATORVASTATIN 20 MG TAB PO SCH (09:27)
[2021-10-14] MEDS: CYANOCOBALAMIN 500 MCG TAB PO SCH (09:27)
[2021-10-14] MEDS: BARICITINIB 2MG TABLET (OLUMIANT) FOR EUA PO SCH (09:28)
[2021-10-14] MEDS: DABIGATRAN ETEXILATE 75 MG CAP (PRADAXA) PO SCH ×2 (09:29→20:42)
[2021-10-14] MEDS: FUROSEMIDE 20 MG TAB PO SCH (09:29)
[2021-10-14] MEDS: REMDESIVIR 100 MG in NS 250 ML IV SCH (12:20)
[2021-10-14] MEDS: SODIUM CHLORIDE 0.9% INJ 10 ML SYR IV SCH (13:44)
[2021-10-14] MEDS: METOPROLOL SUCC (TopROL XL) 100MG *XL* TAB PO SCH (20:43)
[2021-10-15] VITALS (7 sets, daily range): BP systolic 136–143; BP diastolic 77–88; O2SAT 93–94
[2021-10-15] MEDS: IPRATROPIUM 0.5MG/ALBUTEROL 2.5MG INH SOL UD 3ML (DUONEB) NEB SCH ×4 (05:15→11:18)
[2021-10-15] MEDS: dexameTHASONE 20MG/5ML VIAL (J1100 PER 1MG) IV SCH (09:46)
[2021-10-15] MEDS: METOPROLOL SUCC (TopROL XL) 100MG *XL* TAB PO SCH (09:46)
[2021-10-15] MEDS: ATORVASTATIN 20 MG TAB PO SCH (09:46)
[2021-10-15] MEDS: BARICITINIB 2MG TABLET (OLUMIANT) FOR EUA PO SCH (09:47)
[2021-10-15] MEDS: DABIGATRAN ETEXILATE 75 MG CAP (PRADAXA) PO SCH (09:47)
[2021-10-15] MEDS: FUROSEMIDE 20 MG TAB PO SCH (09:47)
[2021-10-15] MEDS: CYANOCOBALAMIN 500 MCG TAB PO SCH (09:47)
== END 2021-10-15 14:24 | disposition home or self-care (01) | DRG 177 ==
LOC: M ED 04:28 → M ED INP 07:28 → ENRESERV 09:55 → M ICU 11:56 → M 4MAIN 10-12 12:24
PROVIDERS: ADMIT Internal Medicine; ATTEND Internal Medicine
DX: U07.1 COVID-19 (principal); J96.22 Acute and chronic respiratory failure with hypercapnia; J96.21 Acute and chronic respiratory failure with hypoxia; I50.33 Acute on chronic diastolic (congestive) heart failure; J12.82 Pneumonia due to coronavirus disease 2019; E66.2 Morbid (severe) obesity with alveolar hypoventilation; Z95.810 Presence of automatic (implantable) cardiac defibrillator; I48.91 Unspecified atrial fibrillation; E78.5 Hyperlipidemia, unspecified; Z79.899 Other long term (current) drug therapy; Z91.19 Patient's noncompliance with other medical treatment and regimen

== ENCOUNTER → 2021-12-04 | Outpatient (CLI) | payer MEDICARE, OTHER ==
[~2021-12-04] MED LIST changes: +ATOR1TAB21 PO; +CYAN100049 PO; +D-3-50003 PO; +GABA-1171 PO; +LEVO500T4 PO
== END ==
LOC: M WUC 11:54
PROVIDERS: ATTEND Nurse Practitioner Adult Health
DX: R06.02 Shortness of breath (principal)

== ENCOUNTER → 2023-11-18 | Outpatient (CLI) | payer MEDICARE, OTHER ==
[~2023-11-18] MED LIST changes: +DICL100G10 TOP; -DICL1GEL3 TOP; +LEVO1TAB39 PO; -LEVO500T4 PO; +METO200T15 PO; -METO200T28 PO
== END ==
LOC: M SLEEP 20:00
PROVIDERS: ATTEND Nurse Practitioner Adult Health
DX: G47.33 Obstructive sleep apnea (adult) (pediatric) (principal)

== ENCOUNTER → 2023-12-17 | Outpatient (CLI) | payer MEDICARE, OTHER | LOC: M WUC 12:47 | PROVIDERS: ATTEND Physician Assistant | DX: S20.211A Contusion of right front wall of thorax, initial encounter (principal); Y93.9 Activity, unspecified; Y92.9 Unspecified place or not applicable ==

== ENCOUNTER → 2025-01-09 | Outpatient (CLI) | payer MEDICARE, OTHER ==
[~2025-01-09] MED LIST changes: -PRAV20TA2 PO; +PRAV20TA78 PO
== END ==
LOC: M PLAIMG 12:26
PROVIDERS: ATTEND Pain Medicine Interventional Pain Medicine
DX: M47.26 Other spondylosis with radiculopathy, lumbar region (principal); M48.56XA Collapsed vertebra, not elsewhere classified, lumbar region, initial encounter for fracture